=== PATIENT | female | born 1960 | race Caucasian/White ===

== ENCOUNTER 2017-09-03 12:47 | Day surgery (SDC) | payer OTHER ==
[2017-09-03] MEDS ORDERED: Nivolumab 200 MG, Nivolumab 40 MG, Admixture Fee 1 EACH in Sodium Chloride 0.9% 250 ML ... IVPB SCH (13:00)
[2017-09-03 13:21] VITALS: BP 155/81; TEMP 98.2
[2017-09-03] MEDS ORDERED: FLU VACC QS2017-18 36 mo. & older 0.5 ML SYRINGE IM ONE (14:00)
== END 2017-09-03 15:21 | disposition home or self-care (01) ==
LOC: ONC/OP 12:47
PROVIDERS: ATTEND Internal Medicine Medical Oncology
DX: Z51.11 Encounter for antineoplastic chemotherapy (principal); C34.31 Malignant neoplasm of lower lobe, right bronchus or lung; J44.9 Chronic obstructive pulmonary disease, unspecified; I48.91 Unspecified atrial fibrillation; F32.9 Major depressive disorder, single episode, unspecified; F41.9 Anxiety disorder, unspecified; Z88.0 Allergy status to penicillin; Z79.899 Other long term (current) drug therapy; Z87.891 Personal history of nicotine dependence; Z80.1 Family history of malignant neoplasm of trachea, bronchus and lung; Z80.0 Family history of malignant neoplasm of digestive organs
CPT/HCPCS: 36415; 84436; 84443; 96413; J7050; J9299

== ENCOUNTER 2017-09-17 11:10 | Day surgery (SDC) | payer OTHER ==
[2017-09-17] MEDS ORDERED: Nivolumab 200 MG, Nivolumab 40 MG, Admixture Fee 1 EACH in Sodium Chloride 0.9% 250 ML ... IVPB SCH (11:30)
[2017-09-17] MEDS ORDERED: Sodium Chloride 0.9% 20 ML ONE (12:13)
== END 2017-09-17 13:20 | disposition home or self-care (01) ==
LOC: ONC/OP 11:10
PROVIDERS: ATTEND Internal Medicine Medical Oncology
DX: Z51.11 Encounter for antineoplastic chemotherapy (principal); C34.11 Malignant neoplasm of upper lobe, right bronchus or lung; I48.91 Unspecified atrial fibrillation; J44.9 Chronic obstructive pulmonary disease, unspecified; Z88.0 Allergy status to penicillin; Z98.42 Cataract extraction status, left eye; Z98.41 Cataract extraction status, right eye; Z98.890 Other specified postprocedural states; Z87.891 Personal history of nicotine dependence
CPT/HCPCS: 36415; 84436; 84443; 96413; A4216; J7050; J9299

== ENCOUNTER 2017-10-01 11:16 | Day surgery (SDC) | payer OTHER ==
[2017-10-01] MEDS ORDERED: Sodium Chloride 0.9% 20 ML ONE (12:25)
[2017-10-01] MEDS ORDERED: Nivolumab 200 MG, Nivolumab 40 MG, Admixture Fee 1 EACH in Sodium Chloride 0.9% 250 ML ... IVPB SCH (13:00)
== END 2017-10-01 14:36 | disposition home or self-care (01) ==
LOC: ONC/OP 11:16
PROVIDERS: ATTEND Internal Medicine Medical Oncology
DX: Z51.11 Encounter for antineoplastic chemotherapy (principal); C34.11 Malignant neoplasm of upper lobe, right bronchus or lung; J44.9 Chronic obstructive pulmonary disease, unspecified; I48.91 Unspecified atrial fibrillation; F32.9 Major depressive disorder, single episode, unspecified; F41.9 Anxiety disorder, unspecified; Z79.01 Long term (current) use of anticoagulants; Z79.82 Long term (current) use of aspirin; Z79.52 Long term (current) use of systemic steroids; Z79.899 Other long term (current) drug therapy; Z88.0 Allergy status to penicillin; Z98.890 Other specified postprocedural states; Z80.1 Family history of malignant neoplasm of trachea, bronchus and lung; Z80.0 Family history of malignant neoplasm of digestive organs; Z87.891 Personal history of nicotine dependence; Z92.3 Personal history of irradiation
CPT/HCPCS: 36415; 84436; 84443; 96413; A4216; J7050; J9299

== ENCOUNTER 2017-10-15 11:32 | Day surgery (SDC) | payer OTHER ==
[2017-10-15] MEDS ORDERED: Nivolumab 200 MG, Nivolumab 40 MG, Admixture Fee 1 EACH in Sodium Chloride 0.9% 250 ML ... IVPB SCH (11:45)
[2017-10-15] MEDS ORDERED: Sodium Chloride 0.9% 20 ML ONE (11:47)
[2017-10-15 12:38] VITALS: BP 134/81; TEMP 98.3
== END 2017-10-15 13:46 | disposition home or self-care (01) ==
LOC: ONC/OP 11:32
PROVIDERS: ATTEND Internal Medicine Medical Oncology
DX: Z51.11 Encounter for antineoplastic chemotherapy (principal); C34.11 Malignant neoplasm of upper lobe, right bronchus or lung; I48.91 Unspecified atrial fibrillation; J44.9 Chronic obstructive pulmonary disease, unspecified; F32.9 Major depressive disorder, single episode, unspecified; F41.9 Anxiety disorder, unspecified; Z88.0 Allergy status to penicillin; Z79.899 Other long term (current) drug therapy; Z87.891 Personal history of nicotine dependence; Z80.1 Family history of malignant neoplasm of trachea, bronchus and lung; Z80.0 Family history of malignant neoplasm of digestive organs
CPT/HCPCS: 36415; 84436; 84443; 96413; A4216; J7050; J9299

== ENCOUNTER 2017-10-29 11:19 | Day surgery (SDC) | payer OTHER ==
[2017-10-29] MEDS ORDERED: Sodium Chloride 0.9% 20 ML ONE (11:47)
[2017-10-29] MEDS ORDERED: Nivolumab 200 MG, Nivolumab 40 MG, Admixture Fee 1 EACH in Sodium Chloride 0.9% 250 ML ... IVPB SCH (12:30)
[2017-10-29 14:16] VITALS: BP 145/77; TEMP 98.3
== END 2017-10-29 14:18 | disposition home or self-care (01) ==
LOC: ONC/OP 11:19
PROVIDERS: ATTEND Internal Medicine Medical Oncology
DX: Z51.11 Encounter for antineoplastic chemotherapy (principal); C34.11 Malignant neoplasm of upper lobe, right bronchus or lung; J44.9 Chronic obstructive pulmonary disease, unspecified; I48.91 Unspecified atrial fibrillation; F41.9 Anxiety disorder, unspecified; F32.9 Major depressive disorder, single episode, unspecified; Z79.899 Other long term (current) drug therapy; Z79.82 Long term (current) use of aspirin; Z79.01 Long term (current) use of anticoagulants; Z79.2 Long term (current) use of antibiotics; Z88.0 Allergy status to penicillin; Z98.890 Other specified postprocedural states; Z87.891 Personal history of nicotine dependence; Z80.1 Family history of malignant neoplasm of trachea, bronchus and lung; Z80.0 Family history of malignant neoplasm of digestive organs
CPT/HCPCS: 36415; 84436; 84443; 96413; A4216; J7050; J9299

== ENCOUNTER 2017-11-12 14:25 | Day surgery (SDC) | payer OTHER ==
[2017-11-12] MEDS ORDERED: Sodium Chloride 0.9% 20 ML ONE (14:42)
[2017-11-12] MEDS ORDERED: Nivolumab 200 MG, Nivolumab 40 MG, Admixture Fee 1 EACH in Sodium Chloride 0.9% 250 ML ... IVPB SCH (14:45)
--- NOTE | 2017-11-12 16:00 | RAD ---
PA AND LATERAL CHEST: History: Lung cancer. Comparison: 09-02-17. Comparison also made to films dating back to 05-28-17. FINDINGS: The right lung mass is again seen. It has significantly decreased in size when compared to 05-28-17, m easuring approximately 5.0 x 2.0 cm today. Previous measurements on the PA film were recorded at 6.7 x 2.9 cm. This also shows mild decrease in size when compared to 09-02-17 at which time it measured 5. 4 x 2.1 cm. The left lung remains clear. No other interval change. Mild hyperexpansion again noted. Heart and med iastinum are unremarkable. IMPRESSION: Right lung mass has decreased in size as described. POS: [facility]
== END 2017-11-12 16:38 | disposition home or self-care (01) ==
LOC: ONC/OP 14:25
PROVIDERS: ATTEND Internal Medicine Medical Oncology
DX: Z51.11 Encounter for antineoplastic chemotherapy (principal); C34.11 Malignant neoplasm of upper lobe, right bronchus or lung; I48.91 Unspecified atrial fibrillation; J44.9 Chronic obstructive pulmonary disease, unspecified; F41.9 Anxiety disorder, unspecified; F32.9 Major depressive disorder, single episode, unspecified; Z79.01 Long term (current) use of anticoagulants; Z79.82 Long term (current) use of aspirin; Z79.899 Other long term (current) drug therapy; Z88.0 Allergy status to penicillin; Z87.891 Personal history of nicotine dependence; Z80.0 Family history of malignant neoplasm of digestive organs; Z80.1 Family history of malignant neoplasm of trachea, bronchus and lung; Z98.51 Tubal ligation status; Z98.890 Other specified postprocedural states
CPT/HCPCS: 71020; 84436; 84443; 96413; A4216; J7050; J9299

== ENCOUNTER 2017-11-26 11:07 | Day surgery (SDC) | payer OTHER ==
[2017-11-26 11:59] VITALS: BP 120/71; TEMP 99.2
[2017-11-26] MEDS ORDERED: Sodium Chloride 0.9% 20 ML ONE (12:03)
[2017-11-26] MEDS ORDERED: Nivolumab 200 MG, Nivolumab 40 MG, Admixture Fee 1 EACH in Sodium Chloride 0.9% 250 ML ... IVPB SCH (13:00)
== END 2017-11-26 14:18 | disposition home or self-care (01) ==
LOC: ONC/OP 11:07
PROVIDERS: ATTEND Internal Medicine Medical Oncology
DX: Z51.11 Encounter for antineoplastic chemotherapy (principal); C34.11 Malignant neoplasm of upper lobe, right bronchus or lung; J44.9 Chronic obstructive pulmonary disease, unspecified; I48.91 Unspecified atrial fibrillation; F32.9 Major depressive disorder, single episode, unspecified; F41.9 Anxiety disorder, unspecified; Z88.0 Allergy status to penicillin; Z79.899 Other long term (current) drug therapy; Z98.890 Other specified postprocedural states; Z87.891 Personal history of nicotine dependence; Z80.1 Family history of malignant neoplasm of trachea, bronchus and lung; Z80.0 Family history of malignant neoplasm of digestive organs
CPT/HCPCS: 96413; A4216; J7050; J9299

== ENCOUNTER 2017-12-09 10:29 | Day surgery (SDC) | payer OTHER ==
[2017-12-09] MEDS ORDERED: Sodium Chloride 0.9% 20 ML ONE (10:54)
[2017-12-09 11:11] VITALS: BP 144/71
[2017-12-09] MEDS ORDERED: Nivolumab 200 MG, Nivolumab 40 MG, Admixture Fee 1 EACH in Sodium Chloride 0.9% 250 ML ... IVPB SCH (11:30)
== END 2017-12-09 13:06 | disposition home or self-care (01) ==
LOC: ONC/OP 10:29
PROVIDERS: ATTEND Internal Medicine Medical Oncology
DX: Z51.11 Encounter for antineoplastic chemotherapy (principal); C34.11 Malignant neoplasm of upper lobe, right bronchus or lung; J44.9 Chronic obstructive pulmonary disease, unspecified; I48.91 Unspecified atrial fibrillation; F32.9 Major depressive disorder, single episode, unspecified; F41.9 Anxiety disorder, unspecified; Z88.0 Allergy status to penicillin; Z79.01 Long term (current) use of anticoagulants; Z79.899 Other long term (current) drug therapy; Z98.890 Other specified postprocedural states; Z87.891 Personal history of nicotine dependence; Z80.1 Family history of malignant neoplasm of trachea, bronchus and lung; Z80.0 Family history of malignant neoplasm of digestive organs
CPT/HCPCS: 84436; 84443; 96413; A4216; J7050; J9299

== ENCOUNTER 2017-12-24 09:04 | Day surgery (SDC) | payer OTHER ==
[2017-12-24] MEDS ORDERED: Nivolumab 200 MG, Nivolumab 40 MG, Admixture Fee 1 EACH in Sodium Chloride 0.9% 250 ML ... IVPB SCH (09:30)
== END 2017-12-24 12:05 | disposition home or self-care (01) ==
LOC: ONC/OP 09:04
PROVIDERS: ATTEND Internal Medicine Medical Oncology
DX: Z51.11 Encounter for antineoplastic chemotherapy (principal); C34.11 Malignant neoplasm of upper lobe, right bronchus or lung; J44.9 Chronic obstructive pulmonary disease, unspecified; F41.9 Anxiety disorder, unspecified; F32.9 Major depressive disorder, single episode, unspecified; I48.91 Unspecified atrial fibrillation; Z79.2 Long term (current) use of antibiotics; Z79.01 Long term (current) use of anticoagulants; Z79.82 Long term (current) use of aspirin; Z79.52 Long term (current) use of systemic steroids; Z79.899 Other long term (current) drug therapy; Z88.0 Allergy status to penicillin; Z98.890 Other specified postprocedural states; Z87.891 Personal history of nicotine dependence; Z80.1 Family history of malignant neoplasm of trachea, bronchus and lung; Z80.0 Family history of malignant neoplasm of digestive organs
CPT/HCPCS: 96413; J7050; J9299

== ENCOUNTER 2018-01-07 14:37 | Day surgery (SDC) | payer OTHER ==
[2018-01-07] MEDS ORDERED: Nivolumab 200 MG, Nivolumab 40 MG, Admixture Fee 1 EACH in Sodium Chloride 0.9% 250 ML ... IVPB SCH (15:30)
== END 2018-01-07 16:51 | disposition home or self-care (01) ==
LOC: ONC/OP 14:37
PROVIDERS: ATTEND Internal Medicine Medical Oncology
DX: Z51.11 Encounter for antineoplastic chemotherapy (principal); C34.11 Malignant neoplasm of upper lobe, right bronchus or lung; I48.91 Unspecified atrial fibrillation; J44.9 Chronic obstructive pulmonary disease, unspecified; F41.9 Anxiety disorder, unspecified; F32.9 Major depressive disorder, single episode, unspecified; Z79.2 Long term (current) use of antibiotics; Z79.01 Long term (current) use of anticoagulants; Z79.82 Long term (current) use of aspirin; Z79.52 Long term (current) use of systemic steroids; Z79.899 Other long term (current) drug therapy; Z88.0 Allergy status to penicillin; Z98.890 Other specified postprocedural states; Z87.891 Personal history of nicotine dependence; Z80.1 Family history of malignant neoplasm of trachea, bronchus and lung; Z80.0 Family history of malignant neoplasm of digestive organs
CPT/HCPCS: 96413; J7050; J9299

== ENCOUNTER 2018-01-21 12:04 | Day surgery (SDC) | payer OTHER ==
[2018-01-21] MEDS ORDERED: Nivolumab 240 MG in Sodium Chloride 0.9% 250 ML 250 ML IVPB SCH (12:30)
[2018-01-21] MEDS ORDERED: Sodium Chloride 0.9% 30 ML ONE (12:55)
[2018-01-21 13:22] VITALS: BP 179/90; TEMP 98.4
--- NOTE | 2018-01-21 14:37 | RAD ---
RADIOGRAPH CHEST 2 VIEWS: Date: 01-21-18 Time: 12:14 p.m. HISTORY: 57-year-old female with I62.3/C34.11 - malignant neoplasm of upper lobe, right bronchus or lung. COMPARISON: 11-12-17 FINDINGS: There is severe bilateral hyperinflation of the lungs, representing COPD. Cardiomediastinal silhouett e is narrowed by this pulmonary hyperinflation. The previously demonstrated approximately 5 x 2 cm ri ght parahilar upper lobe lesion remains, but it appears less dense on the current radiograph. The tra nsverse diameter has not significantly changed. The craniocaudal dimension appears larger because it is now confluent with right suprahilar density, resulting in overall craniocaudal dimension of approx imately 4 cm. The rest of the lungs are clear. No pleural effusion or pneumothorax. IMPRESSION: 1. Right parahilar upper lobe pulmonary lesion appears less dense than before, but its craniocaudal d imension has questionably increased. 2. Consider further evaluation with chest CT. 3. Severe hyperinflation representing emphysema. GWEN POS: [facility]
== END 2018-01-21 17:22 | disposition home or self-care (01) ==
LOC: ONC/OP 12:04
PROVIDERS: ATTEND Internal Medicine Medical Oncology
DX: Z51.11 Encounter for antineoplastic chemotherapy (principal); C34.11 Malignant neoplasm of upper lobe, right bronchus or lung; J44.9 Chronic obstructive pulmonary disease, unspecified; I48.91 Unspecified atrial fibrillation; F41.9 Anxiety disorder, unspecified; F32.9 Major depressive disorder, single episode, unspecified; Z79.01 Long term (current) use of anticoagulants; Z79.82 Long term (current) use of aspirin; Z79.2 Long term (current) use of antibiotics; Z79.52 Long term (current) use of systemic steroids; Z79.899 Other long term (current) drug therapy; Z88.0 Allergy status to penicillin; Z98.890 Other specified postprocedural states; Z87.891 Personal history of nicotine dependence; Z80.1 Family history of malignant neoplasm of trachea, bronchus and lung; Z80.0 Family history of malignant neoplasm of digestive organs
CPT/HCPCS: 71046; 84436; 84443; 96413; A4216; J7050; J9299

== ENCOUNTER 2018-02-04 14:03 | Day surgery (SDC) | payer OTHER ==
[2018-02-04] MEDS ORDERED: Nivolumab 240 MG in Sodium Chloride 0.9% 250 ML 250 ML IVPB SCH (15:15)
[2018-02-04 15:39] VITALS: BP 135/80
== END 2018-02-04 17:16 | disposition home or self-care (01) ==
LOC: ONC/OP 14:03
PROVIDERS: ATTEND Internal Medicine Medical Oncology
DX: Z51.11 Encounter for antineoplastic chemotherapy (principal); C34.11 Malignant neoplasm of upper lobe, right bronchus or lung; J44.9 Chronic obstructive pulmonary disease, unspecified; I48.91 Unspecified atrial fibrillation; F41.8 Other specified anxiety disorders; Z87.891 Personal history of nicotine dependence; Z88.0 Allergy status to penicillin; Z79.899 Other long term (current) drug therapy
CPT/HCPCS: 96413; J7050; J9299

== ENCOUNTER 2018-02-18 14:22 | Day surgery (SDC) | payer OTHER ==
[2018-02-18] MEDS ORDERED: Nivolumab 240 MG in Sodium Chloride 0.9% 250 ML 250 ML IVPB SCH (14:30)
--- NOTE | 2018-02-18 15:48 | RAD ---
TWO VIEWS OF THE CHEST: 02/18/18 COMPARISON: 01/21/18 HISTORY: Malignant neoplasm of right upper lobe. FINDINGS: Diffuse increased liner interstitial density with pulmonary hyperinflation suggesting COPD in the pro per clinical setting. There is a mass-like opacity within the right perihilar region/inferior aspect of the right upper lobe with superior retraction of the right hilum and superior retraction of the mi nor fissure. This area of focal opacity, consistent with the provided history of malignancy, measures approximately 3.5 cm in craniocaudal dimension, similar when compared to the 01/21/18 exam. When comp ared to 11/12/17, this mass was smaller, measuring 1.9 cm in craniocaudal dimension. IMPRESSION: Mass density in the right perihilar region, increased in size since 11/12/17. Given history of lung c ancer, this is suspicious for progression of disease. This could be better assessed via CT examinatio n of the chest. Code T POS: [facility]
== END 2018-02-18 16:42 | disposition home or self-care (01) ==
LOC: ONC/OP 14:22
PROVIDERS: ATTEND Internal Medicine Medical Oncology
DX: Z51.11 Encounter for antineoplastic chemotherapy (principal); C34.11 Malignant neoplasm of upper lobe, right bronchus or lung; J44.9 Chronic obstructive pulmonary disease, unspecified; I48.91 Unspecified atrial fibrillation; F41.9 Anxiety disorder, unspecified; F32.9 Major depressive disorder, single episode, unspecified; Z88.0 Allergy status to penicillin; Z87.891 Personal history of nicotine dependence; Z79.01 Long term (current) use of anticoagulants; Z79.899 Other long term (current) drug therapy; Z98.890 Other specified postprocedural states
CPT/HCPCS: 71046; 96413; C9299; J7050

== ENCOUNTER 2018-03-11 10:41 | Outpatient (CLI) | payer OTHER ==
[~2018-03-11 10:41] MED LIST: Iopamidol 370 76% 100 ML VIAL ONE
== END 2018-03-11 10:42 | disposition home or self-care (01) ==
LOC: BICCT 10:41
PROVIDERS: ATTEND Internal Medicine Medical Oncology
DX: C34.11 Malignant neoplasm of upper lobe, right bronchus or lung (principal); R91.8 Other nonspecific abnormal finding of lung field
CPT/HCPCS: 71260; 74160

== ENCOUNTER 2018-03-19 15:12 | Inpatient (IN) | payer OTHER ==
[2018-03-19 15:37] LABS: Hemoglobin 12.9 g/dL (12.0-16.0); Mean Corpuscular HGB CONC 30.9 g/dL (32.0-36.0); Mean Corpuscular Hemoglobin 30.3 pg (27.0-31.0); Mean Corpuscular Volume 98.2 fl (81.0-99.0); Mean Platelet Volume 6.5 fL (7.4-10.4); Platelet Count 672 thou/uL (130-400); Red Blood Cell (RBC) Count 4.27 mill/uL (4.20-5.40); White Blood Cell (WBC) Count 29.3 thou/uL (4.8-10.8)
[2018-03-19 15:51] LABS: Band 7 % (5-11); Lymphocytes 2 % (21-51); MDiff Complete? YES; Monocytes 5 % (0-10); Neutrophil 86 % (42-75); PLT Morphology Comment Appears Increased; RBC Morphology Normal
[2018-03-19] MEDS ORDERED: fentaNYL Citrate/PF 2,000 MCG in Sodium Chloride 0.9% 60 ML IV SCH ×2 (15:56→20:00)
[2018-03-19] MEDS ORDERED: DISCONTINUE PREVIOUS NARCOTIC PAIN MEDICATIONS AND BENZODIAZEPINES FS SCH ×2 (15:56→19:48)
[2018-03-19 15:59] LABS: ALT (SGPT) 11 U/L (8-55); AST (SGOT) 14 U/L (5-34); Albumin 3.7 g/dL (3.5-5.0); Alkaline Phosphatase 96 U/L (40-150); BUN (Urea Nitrogen) 14 mg/dL (9.8-20.1); Bilirubin, Total 0.2 mg/dL (0.2-1.2); Calc. Creatinine Clearance 0 mL/min (70-130); Calcium 10.7 mg/dL (7.8-10.44); Estimated GFR-MDRD Greater than 90; Glucose 140 mg/dL (70-105); Protein, Total 7.7 g/dL (6.0-8.3)
[2018-03-19 16:09] LABS: Anion Gap 13 mmol/L (10-20); Carbon Dioxide 38 mmol/L (22-29); Chloride 95 mmol/L (98-107); Potassium 4.9 mmol/L (3.5-5.1); Sodium 141 mmol/L (136-145)
[2018-03-19] MEDS ORDERED: Magnesium Sulfate 2 GM/100 ML BAG ONE (16:34)
[2018-03-19 16:40] LABS: pH, Arterial 7.19 (7.35-7.45)
[2018-03-19 16:41] LABS: Actual Bicarbonate (HCO3a) 36.9 mEq/L (22-26); Analyzer IN Cardio ER; Base Excess (BEa) 5.8 mEq/L (0 (+/-) 2.5); CO2 Tension 99.8 mmHg (35.0-45.0); Calcium, Ionized 1.2 mmol/L (1.12-1.30); Hemoglobin (Hb) 11.4 g/dL (12.0-16.0); O2 Tension (PaO2) 90.4 mmHg (80.0-100.0); Puncture Site LRA
[2018-03-19] MEDS ORDERED: Ondansetron HCl/PF 4 MG/2 ML Vial IVP PRN (16:50)
[2018-03-19] MEDS ORDERED: Lacri-Lube Opth Oint 3.5 GM TUBE EA EYE PRN (16:50)
[2018-03-19] MEDS ORDERED: Acetaminophen 650 MG Suppository PR PRN (16:50)
[2018-03-19 17:15] LABS: Troponin I Less than 0.010 ng/mL (< 0.028)
--- NOTE | 2018-03-19 17:56 | HP ---
PRIMARY CARE PHYSICIAN: Keli De Paz M.D. PRIMARY SAMPLE CUTTER: Ronald Moraes M.D. CHIEF COMPLAINT: Shortness of breath. HISTORY OF PRESENT ILLNESS: Ms. Mcdaniel is a 57-year-old lady who was seen at [facility] on 03/19/2018. She is currently intubated and unable to provide any history. History was obtained from discussion with the patient's daughter by the bedside, discussion with the emergen cy room physician and review of medical records. She has a history of chronic obstructive pulmonary disease and lung cancer. Her sound assistant is Dr. Leonard. The patient's daughter reports that she stopped receiving chemotherapy treatments a coupl e of weeks ago because the chemotherapy was not working and the patient was not given much longer to live. She reports that she was well until yesterday. Today morning, she complained of shortness of breath. The patient's daughter does not recall hearing any cough. EMS was called. On the way to the emerg ency room, the patient reportedly requested intubation. She was initially treated with a nonrebreath er mask and was intubated in the emergency room. REVIEW OF SYSTEMS: Could not be obtained secondary to the patient's intubated status. PAST MEDICAL HISTORY: Chronic obstructive pulmonary disease; lung cancer; moderate protein-calorie m alnutrition; atrial flutter, patient was on rivaroxaban in the past, but it is unclear whether she is still taking rivaroxaban; severe mitral regurgitation and nonsustained ventricular tachycardia in past. PAST SURGICAL HISTORY: Tubal ligation. PSYCHIATRIC HISTORY: Anxiety and depression. ALLERGIES: PENICILLIN. SOCIAL HISTORY: The patient smokes 1-2 cigarettes a day. She does not use alcohol or recreational d rugs. FAMILY HISTORY: No family history of premature coronary artery disease. CURRENT MEDICATIONS: These need to be clarified, but in the past, the patient was on Tudorza 400 mcg inhalation 2 times a day, Xanax 0.5 mg 2 times a day, aspirin 81 mg daily, Lopressor 12.5 mg 2 times a day, montelukast 10 mg daily, multivitamins and rivaroxaban 20 mg at bedtime. PHYSICAL EXAMINATION: GENERAL: Ms. Mcdaniel is intubated and mechanically ventilated. VITAL SIGNS: Blood pressure is 146/80, pulse is 95. She is breathing at a rate of 10 and saturating 100% on ventilator. She is afebrile. EYES: No scleral icterus. No conjunctival pallor. Pupils are approximately 4 mm bilaterally, slugg ishly reactive to light. ENT: Endotracheal tube present. NECK: No cervical lymphadenopathy, no thyromegaly. Trachea is midline. RESPIRATORY: Accessory muscles of breathing are not active. Chest wall movements are symmetric bila terally. LUNGS: Reveals diminished breath sounds in all lung zones. CARDIOVASCULAR: S1 and S2 are heard, regular. Peripheral pulses palpable. No carotid bruit, no per icardial rub. BODY HABITUS: The patient appears to be malnourished. ABDOMEN: Soft, nontender, bowel sounds are heard. No hepatomegaly, no splenomegaly. NEUROLOGIC: Limited neurological exam secondary to patient's intubated status. Pupils as described above. No facial droop. Deep tendon reflexes are 2+. Plantar reflexes equivocal bilaterally. MUSCULOSKELETAL: The patient is currently on fentanyl drip. No spontaneous limb movements. SKIN: The patient has tattoos. No rashes or subcutaneous nodules. LYMPHATIC: No cervical lymphadenopathy. PSYCHIATRIC: Unable to assess mood, affect or orientation to person, place or time. LABORATORY AND IMAGING DATA: Ms. Mcdaniel's labs and investigations were reviewed. I reviewed her electrocardiogram, which shows normal sinus rhythm, no ST changes to suggest an acute coronary syndr ome. I also reviewed her chest x-ray, which does not show any obvious pulmonary infiltrates. She renteria s a right upper lobe lung mass. She has leukocytosis with 29,300 white cells, of which 86% are neutr ophils, normal hemoglobin, elevated platelet count of 672,000. Normal sodium, normal potassium, crea tinine of 0.53, mildly elevated calcium of 10.7, unremarkable liver profile and arterial blood gases showing pH of 7.19, pCO2 of 99.8 and pO2 of 90, done while she was being mechanically ventilated. ASSESSMENT AND PLAN: Ms. Mcdaniel is a 57-year-old lady who was seen at [facility] on 03/19/2018. Her problem list includes: 1. Acute respiratory failure, hypercapnic. Ms. Mcdaniel is currently intubated and mechanically v entilated. She has also been started on oxygen, steroids and bronchodilators by [facility]. She will be admitted to the CCU for further management. Most likely etiology of acute respiratory failure is chronic obstructive pulmonary disease exacerbation. 2. Chronic obstructive pulmonary disease exacerbation: Continue oxygen, steroids, bronchodilators a nd antibiotics. 3. Lung cancer. No treatment options, according to patient's daughter. 4. Moderate to severe protein-calorie malnutrition: Consult dietitian for opinion and help with man agement. 5. History of atrial flutter: The patient is currently in sinus rhythm. Once her home medications are confirmed, we will decide regarding whether she should be on rivaroxaban. Many thanks for allowing me to participate in your patient's care. Please feel free to contact me wi th any questions or concerns. LEVEL OF RISK: High. LEVEL OF COMPLEXITY: High.
--- NOTE | 2018-03-19 18:10 | RAD ---
PORTABLE AP CHEST X-RAY 03/19/18 HISTORY: Post intubation and nasogastric tube placement. Shortness of breath. History of COPD and lung cancer. COMPARISON: 02/18/18. FINDINGS: Endotracheal tube is now noted in place with the tip overlying the T3-4 level and above the level of the daryl. The lungs are hyperexpanded. The right upper lobe mass is again seen but is larger in siz e compared to the prior exam. Mass in craniocaudal dimension on the prior study measured 3.5 cm with transverse dimension of approximately 5.4 cm. On today's exam, the craniocaudal dimension is 5.5 cm with transverse dimension of 6.6 cm. No definite additional pulmonary nodule or mass is seen. Vascula r calcification is seen in the thoracic aorta. The cardiac silhouette and pulmonary vasculature are w ithin normal limits. No other interval change. IMPRESSION: 1. Interval placement of an endotracheal tube with tip above the level of the daryl. 2. Enlargement of right upper lobe/right perihilar mass. 3. Stable hyperexpansion of the lungs. 4. Indication for this exam was also nasogastric tube placement, but a nasogastric tube is not v isualized on this exam. POS: [facility]
[2018-03-19] MEDS ORDERED: Morphine 4 MG/ML VIAL SLOW IVP PRN (19:48)
[2018-03-19] MEDS ORDERED: Fentanyl CADD 250 ML IVPB SCH (19:48)
[2018-03-19] MEDS ORDERED: Propofol BOLUS 1,000 MG/100 ML VIAL IV PRN (19:48)
[2018-03-19] MEDS ORDERED: Fentanyl BOLUS 250 ML IVPB PRN (19:48)
[2018-03-19] MEDS: Cefepime 1 GM, Admixture Fee 1 EACH in Sodium Chloride 0.9% 10 ML SLOW IVP SCH (19:53)
[2018-03-19 20:18] LABS: Troponin I Less than 0.010 ng/mL (< 0.028)
[2018-03-19] MEDS ORDERED: Famotidine/PF 20 mg/2ml Vial SLOW IVP SCH (21:00)
[2018-03-19] MEDS ORDERED: Cefepime 1 GM in Sodium Chloride 0.9% 100 ML IVPB SCH (21:00)
[2018-03-19] MEDS ORDERED: Famotidine 40 MG/4 ML VIAL SLOW IVP SCH (21:00)
[2018-03-19] MEDS: Pantoprazole 40 MG VIAL IVP SCH (21:34)
[2018-03-19] MEDS: Lorazepam 2 MG/ML VIAL SLOW IVP PRN (23:04)
--- NOTE | 2018-03-19 23:22 | CON ---
DATE OF CONSULTATION: 03/19/2018 HISTORY OF PRESENT ILLNESS: A 57-year-old female with end-stage COPD, lung cancer, followed by Dr. Jet dimas, Dr. Leonard. Apparently, came to the ER and shortly thereafter proceeded to respiratory arr est. Apparently, the daughter was at the bedside according to the ER physician who intubated. My un derstanding was that somewhere down the line, she has considered hospice care. The daughter is not here at the present time to give additional information. In the ER, we are in th e process of trying to locate the daughter. PAST MEDICAL HISTORY: The other previous medical history is extensively well outlined; it includes h istory of COPD, end-stage with multiple intubations in the past; depression; anxiety and squamous esvin l carcinoma, right lung. PAST SURGICAL HISTORY: Tubal ligation and right hand surgery. MEDICATIONS: At one time, she was on Symbicort, albuterol, DuoNeb, Xanax. HOME MEDICINES: Include prednisone 20, Xarelto 20, Singulair 10, Lopressor 12.5 b.i.d. and aspirin i nhaler ____. ALLERGIES: PENICILLIN. SOCIAL HISTORY: Former smoker, quit smoking in 2012. In 2017, she was admitted to the hospital with respiratory failure. She had a previous trach in the past. Social history is otherwise unobtainabl e. FAMILY HISTORY: Otherwise unobtainable. REVIEW OF SYSTEMS: Otherwise unobtainable. PHYSICAL EXAMINATION: GENERAL: A cachectic female, intubated. VITAL SIGNS: Sats are 100%, pulse 80, and blood pressure ____. CHEST: Decreased breath sounds. No wheezing. CARDIAC: Normal S1 and S2. No gallops. ABDOMEN: Soft. No masses. NEUROLOGIC: Pupils are pinpoint. LABORATORY DATA: White count is 29,000, hemoglobin and hematocrit 12 and 41, platelet count is 672 a nd 86 segs. Glucose 140. IMAGING DATA: X-ray shows the above-mentioned right lung mass with marked hyperinflation. Oxygenati on is adequate. IMPRESSION: 1. Respiratory failure, chronic obstructive pulmonary disease. 2. Squamous cell carcinoma, right lung. 3. Hypertension. PLAN: As soon as the daughter is arrived, we will try to make additional input at long-term care. In the meantime, we will proceed with neb treatments, steroids and broad-spectrum antibiotics. We will follow. This is a forty-five minutes critical care time.
[2018-03-20] MEDS: Lorazepam 2 MG/ML VIAL SLOW IVP PRN ×3 (00:58→19:55)
[2018-03-20 05:34] LABS: #Lymphocytes 0.3 thou/uL (1.20-3.40); #Monocytes 0.4 thou/uL (0.11-0.59); #Neutrophils 10.8 thou/uL (1.40-6.50); %Eosinophils 0.1 % (0.0-10.0); %Lymphocytes 2.5 % (21.0-51.0); %Neutrophils 94.4 % (42.0-75.0); Mean Corpuscular HGB CONC 31.2 g/dL (32.0-36.0); Mean Corpuscular Volume 96.3 fl (81.0-99.0); Mean Platelet Volume 6.3 fL (7.4-10.4); Platelet Count 356 thou/uL (130-400); RBC Distribution Width 11.8 % (11.5-14.5); Red Blood Cell (RBC) Count 3.01 mill/uL (4.20-5.40); White Blood Cell (WBC) Count 11.4 thou/uL (4.8-10.8)
[2018-03-20 05:42] LABS: Anion Gap 12 mmol/L (10-20); BUN (Urea Nitrogen) 20 mg/dL (9.8-20.1); Calc. Creatinine Clearance 84 mL/min (70-130); Calcium 9.1 mg/dL (7.8-10.44); Carbon Dioxide 30 mmol/L (22-29); Chloride 105 mmol/L (98-107); Estimated GFR-MDRD Greater than 90; Glucose 128 mg/dL (70-105); Potassium 3.8 mmol/L (3.5-5.1); Sodium 143 mmol/L (136-145)
[2018-03-20] MEDS: Cefepime 1 GM, Admixture Fee 1 EACH in Sodium Chloride 0.9% 10 ML SLOW IVP SCH ×2 (06:11→17:26)
[2018-03-20 07:19] LABS: pH, Arterial 7.43 (7.35-7.45)
[2018-03-20 07:20] LABS: Actual Bicarbonate (HCO3a) 32.4 mEq/L (22-26); Base Excess (BEa) 7.3 mEq/L (0 (+/-) 2.5); CO2 Tension 49.7 mmHg (35.0-45.0); Hematocrit-ABG 25.2 % (36.0-47.0); O2 Tension (PaO2) 110.5 mmHg (80.0-100.0)
[2018-03-20 07:21] LABS: ALV-art Gradient 76.925 (0-20); Calcium, Ionized 1.2 mmol/L (1.12-1.30); Puncture Site LRA
--- NOTE | 2018-03-20 08:37 | PRG ---
DATE OF SERVICE: 03/20/2018 The events of yesterday were noted. This is a note that encompasses 45 minutes critical care time sp ent with the patient this morning. I have known Ms. Mcdaniel for the past 10 years. She has severe COPD. She had a tracheostomy back in 2012 for refractory respiratory failure and barely survived that hospitalization. She eventually got through that and was decannulated. However, in the last couple of years her health has begun to decline again. In 12/2015 the patient underwent bronchoscopy for right upper lobe lung mass and was diagnosed with squamous cell carcinoma. She has since undergone radiation and chemo. The last note I got from her oncologist indicated that she had advanced to the point where he felt not much more c ould be done and was pushing towards hospice. It is my understanding that she actually enrolled in H ospice this week, but was not DNR yet. She came into the hospital last night with severe shortness o f breath. I am not sure who was making decisions at that time, but she was subsequently intubated an d placed on mechanical ventilation. Her ex- presented last night and spoke with Dr. East. My communication with the patient today indicates that she is actually and does not want him m aking any decisions. She wants her daughter to make decisions for her if she cannot. Her son has brito bstance abuse problems and cannot be trusted to make medical decisions and I believe he is probably s till a minor. Currently, she is intubated on mechanical ventilation, but is awake. PHYSICAL EXAMINATION: VITAL SIGNS: Temperature is 98.6, pulse 103, blood pressure 121/74, O2 saturation 100%, 24-hour inta ke 10, output 550. She has had minimal urine output, but has not been getting any IV fluids. HEENT: Pupils react. Sclerae icteric. Oropharynx clear. NECK: No JVD. LUNGS: Poor air movement. She has a peak airway pressure of about 35, plateau pressure of 11. CARDIOVASCULAR: S1, S2 regular, without murmur. ABDOMEN: Soft, nontender, nondistended. EXTREMITIES: Severe emaciation without clubbing, cyanosis, or edema. LABORATORY DATA: PH 7.43, pCO2 49, pO2 110 on SIMV rate 20, tidal volume 350, PEEP 5, pressure suppo rt 10, FiO2 35%. White blood cell count 11.4, hematocrit 29, platelet count 356. Sodium 143, potass ium 3.8, chloride 105, CO2 30, BUN 20, creatinine 0.5, glucose 128. ASSESSMENT: 1. Acute on chronic respiratory failure. 2. Severe chronic obstructive pulmonary disease. 3. Squamous cell carcinoma which has been refractory to chemo and radiation. RECOMMENDATIONS: 1. I do feel like the patient is able to make decisions for herself at this time. She indicated to me that she would want to try mechanical ventilation for another day or two to see if I can get her o ff. From my conversations with her in the past, I do not feel that she would want this prolonged. S he is in a very difficult family situation having a minor child at home. 2. Continue steroids, nebulization treatments. I have adjusted her IV fluids and the frequency of h er nebulization treatments. 3. Will discuss with her daughter when I can get ahold of her.
[2018-03-20] MEDS: Propofol 1,000 MG/100 ML VIAL IV PRN ×2 (08:40→19:48)
[2018-03-20] MEDS ORDERED: Prevnar 13-Val Conj/PF 0.5 ML SYRINGE IM ONE (09:00)
--- NOTE | 2018-03-20 09:09 | RAD ---
SINGLE VIEW OF THE CHEST: COMPARISON: 03/19/18. HISTORY: Ventilated patient with respiratory failure. FINDINGS: A single view of the chest shows a normal size cardiomediastinal silhouette. There is hyperexpansion of the lungs consistent with COPD. There is persistent opacity in the inferior aspect of the right upper lobe. The endotracheal tube is unchanged in position. An NG tube has been placed in the inter im with its tip in the stomach. The side port of the endotracheal tube is within the distal esophagu s. IMPRESSION: 1. Persistent right upper lobe opacity. 2. Nasogastric tube should be advanced approximately 5 cm completely into the stomach. 3. Chronic obstructive pulmonary disease. CODE T POS: [facility]
[2018-03-20] MEDS: Sodium Chloride 0.45% 1,000 ML IV SCH ×2 (09:23→21:26)
--- NOTE | 2018-03-20 12:49 | PDOC.PN ---
- Subjective Encounter Start Date: 03/20/18 Encounter Start Time: 09:00 Pt seen for followup re: acute on chronic respiratory failure. Awake, alert, intubated, answering questions by nodding or shaking head. - Objective MAR Reviewed: Yes Vital Signs & Weight: Vital Signs (12 hours) Temp Pulse Resp BP Pulse Ox 03/20/18 10:48 102 H 103/59 L 03/20/18 10:47 103 H 21 H 99 03/20/18 10:00 21 H 03/20/18 08:00 98.7 F 106 H 21 H 100 03/20/18 06:41 100 114/70 03/20/18 06:38 100 20 99 03/20/18 06:00 20 03/20/18 04:00 98.6 F 20 03/20/18 02:27 97 91/48 L 03/20/18 02:00 20 Weight Admit Weight 93 lb Weight 93 lb 1.6 oz Most Recent Monitor Data Heart Rate from ECG 105 NIBP 99/58 NIBP BP-Mean 73 Respiration from ECG 20 SpO2 100 I&O: 03/19/18 03/20/18 03/21/18 06:59 06:59 06:59 Intake Total 10 Output Total 550 201 Balance -540 -201 Result Diagrams: 03/20/18 05:20 03/20/18 05:20 EKG Reviewed by me: Yes (Tele: NSR) Phys Exam - Physical Examination malnourished HEENT: PERRLA, moist MMs, sclera anicteric ETT+ Respiratory: no wheezing, no rales, no rhonchi, clear to auscultation bilateral Cardiovascular: RRR, no rub Gastrointestinal: soft, non-tender, no distention, positive bowel sounds Neurological: moves all 4 limbs Psychiatric: normal affect Dx/Plan (1) Acute and chronic respiratory failure with hypercapnia Code(s): J96.22 - ACUTE AND CHRONIC RESPIRATORY FAILURE WITH HYPERCAPNIA Status: Acute Comment: Likely due to COPD exacerbation (2) COPD exacerbation Code(s): J44.1 - CHRONIC OBSTRUCTIVE PULMONARY DISEASE W (ACUTE) EXACERBATION Status: Acute Comment: Intubated and on mechanical ventilation. Continue cefepime, oxygen, steroids and bronchodilators. (3) Protein-calorie malnutrition, severe Code(s): E43 - UNSPECIFIED SEVERE PROTEIN-CALORIE MALNUTRITION Status: Chronic Comment: consult dietitian (4) Lung cancer Code(s): C34.90 - MALIGNANT NEOPLASM OF UNSP PART OF UNSP BRONCHUS OR LUNG Status: Chronic Qualifiers: Laterality: right Lung location: unspecified part of lung Qualified Code( s): C34.91 - Malignant neoplasm of unspecified part of right bronchus or lung Comment: No treatment options, per pt's discussion with her oncologist - Plan * . Review of Systems - Review of Systems Constitutional: negative: fever, chills, weakness, malaise Respiratory: Shortness of Breath, SOB with Excertion. negative: Cough, Pleuritic Pain Cardiovascular: negative: chest pain, palpitations, orthopnea, paroxysmal nocturnal dyspnea, edema Gastrointestinal: negative: Nausea, Vomiting, Abdominal Pain, Diarrhea Neurological: negative: Weakness, Numbness, Confusion, Seizures - Medications/Allergies Allergies/Adverse Reactions: Allergies Allergy/AdvReac Type Severity Reaction Status Date / Time Penicillins Allergy "my mom Verified 05/30/16 09:35 said my tongue swelled up & trouble breathing" Medications: Current Medications Acetaminophen (Tylenol) 650 mg KS Q4H PRN PRN Reason: Headache/Fever or Pain Albuterol/Ipratropium (Duoneb) 3 ml NEB [id number] ALONSO Last Admin: 03/20/18 10:47 Dose: 3 ml Arformoterol Tartrate (Brovana) 15 mcg NEB BID-RT ALONSO Budesonide (Pulmicort Neb Solution) 0.5 mg INH BID-RT ALONSO Fentanyl Citrate 2,000 mcg/ (Sodium Chloride) 100 mls @ 0 mls/hr IV INF ALONSO; Per Protocol PRN Reason: Protocol Stop: 04/18/18 15:56 Cefepime HCl 1 gm/Miscellaneous Medication 1 each/ Sodium Chloride 10 mls @ 120 mls/hr SLOW IVP Q12H ALONSO Last Admin: 03/20/18 06:11 Dose: 10 mls Fentanyl (Fentanyl Cadd) 250 mls @ 0 mls/hr IVPB INF ALONSO; Titrate PRN Reason: Protocol Stop: 04/18/18 19:48 Fentanyl Citrate (Fentanyl Bolus) 250 mls @ 0 mls/hr IVPB PRN PRN; As Directed PRN Reason: Breakthrough pain/agitation Stop: 04/18/18 19:48 Sodium Chloride (1/2 Normal Saline) 1,000 mls @ 75 mls/hr IV .[id number] [facility] Last Admin: 03/20/18 09:23 Dose: 1,000 mls Lorazepam (Ativan) 2 mg SLOW IVP Q1H PRN PRN Reason: Breakthrough agitation Stop: 04/18/18 19:48 Last Admin: 03/20/18 00:58 Dose: 2 mg Methylprednisolone Sodium Succinate (Solu-Medrol) 40 mg IVP Q6HR [facility] Last Admin: 03/20/18 12:37 Dose: 40 mg Mineral Oil/White Petrolatum (Lacri-Lube Ointment) 0 gm EA EYE PRN PRN PRN Reason: Dry Eyes Montelukast Sodium (Singulair) 10 mg PER TUBE QPM [facility] Morphine Sulfate (Morphine) 2 mg SLOW IVP Q1H PRN PRN Reason: breakthrough pain/agitation Stop: 04/18/18 19:48 Ondansetron HCl (Zofran) 4 mg IVP Q6H PRN PRN Reason: Nausea/Vomiting Pantoprazole Sodium (Protonix) 40 mg IVP 2100 [facility] Last Admin: 03/19/18 21:34 Dose: 40 mg Propofol (Diprivan) 1,000 mg IV INF PRN; Protocol PRN Reason: TO ACHIEVE GOAL RASS Stop: 04/18/18 19:48 Last Admin: 03/20/18 08:40 Dose: 1,000 mg Propofol (Diprivan Bolus) 20 mg IV Q5MIN PRN PRN Reason: BREAKTHROUGH AGITATION Stop: 04/18/18 19:48
[2018-03-20 16:46] LABS: Base Excess-Venous 12.3 mmol/L (0 (+/- 2.5)); Bicarbonate (HCO3v) 39.4 mmol/L (1.0-85.0); CO2 Tension (PvCO2) 58.9 mmHg (41.0-51.0); Calcium, Ionized 0.96 mmol/L (1.12-1.32); Hemoglobin - Calc 15.4 g/dL (12.0-18.0); Lactate 1.09 mmol/L (0.50-2.20); O2 Tension (PvO2) 125.5 mmHg (35.0-45.0); Potassium 8.2 mmol/L (3.4-4.7); T. Carbon Dioxide 41.2 mmol/L (1.0-85.0); pH (Venous) 7.434 (7.35-7.45); vO2 Saturation-calc 98.8 % (94-98)
[2018-03-20] MEDS: Budesonide 0.5 MG/2 ML NEB INH SCH (18:19)
[2018-03-20] MEDS: Arformoterol 15 MCG/2 ML NEB NEB SCH (18:19)
[2018-03-20] MEDS: Pantoprazole 40 MG VIAL IVP SCH (20:01)
[2018-03-20] MEDS: Montelukast Sodium 10 mg Tablet PER TUBE SCH (20:01)
[2018-03-21] MEDS: Lorazepam 2 MG/ML VIAL SLOW IVP PRN ×3 (01:54→12:45)
[2018-03-21 04:19] LABS: #Lymphocytes 0.2 thou/uL (1.20-3.40); #Monocytes 0.3 thou/uL (0.11-0.59); #Neutrophils 8.5 thou/uL (1.40-6.50); %Lymphocytes 2.5 % (21.0-51.0); %Monocytes 3.1 % (0.0-10.0); %Neutrophils 94.4 % (42.0-75.0); Hemoglobin 8.7 g/dL (12.0-16.0); Mean Corpuscular HGB CONC 31.3 g/dL (32.0-36.0); Mean Corpuscular Hemoglobin 29.7 pg (27.0-31.0); Mean Platelet Volume 6.4 fL (7.4-10.4); Platelet Count 315 thou/uL (130-400); RBC Distribution Width 11.7 % (11.5-14.5); Red Blood Cell (RBC) Count 2.93 mill/uL (4.20-5.40)
[2018-03-21 04:30] LABS: Anion Gap 10 mmol/L (10-20); BUN (Urea Nitrogen) 11 mg/dL (9.8-20.1); Calc. Creatinine Clearance 92 mL/min (70-130); Calcium 9.7 mg/dL (7.8-10.44); Carbon Dioxide 34 mmol/L (22-29); Chloride 102 mmol/L (98-107); Estimated GFR-MDRD Greater than 90; Glucose 126 mg/dL (70-105); Potassium 3.5 mmol/L (3.5-5.1); Sodium 142 mmol/L (136-145)
[2018-03-21] MEDS: Cefepime 1 GM, Admixture Fee 1 EACH in Sodium Chloride 0.9% 10 ML SLOW IVP SCH ×2 (05:04→17:19)
--- NOTE | 2018-03-21 07:38 | PDOC.PULCC ---
CCU Progress Note: Subj/Obj - Subjective Date: 03/21/18 Time: 07:33 Narrative: Intubated on vent - Objective Allergies/Adverse Reactions: Allergies Allergy/AdvReac Type Severity Reaction Status Date / Time Penicillins Allergy "my mom Verified 05/30/16 09:35 said my tongue swelled up & trouble breathing" MAR Reviewed: Yes Vital Signs and I&O: Vital Signs Temp 98.8 F 03/21/18 04:00 Pulse 85 03/21/18 02:26 Resp 16 03/21/18 06:00 BP 109/68 03/20/18 14:20 Pulse Ox 100 03/21/18 02:26 Intake & Output 03/20/18 03/21/18 03/21/18 18:59 06:59 18:59 Intake Total 751.3 972 Output Total 507 645 Balance 244.3 327 Weight 93 lb 1.6 oz 95 lb 0.308 oz Intake: Intake, IV Amount 751.3 972 Cefepime 1 gm Admixture 10 Fee 1 each In Sodium Chloride 0.9% 10 ml @ 120 mls/hr SLOW IVP Q12H [facility]ON[facility] Rx#:[id number] Propofol 1000 mg (See 65.3 83 Protocol) IV INF PRN Rx#: [id number] Sodium Chloride 0.45% 1, 686 879 000 ml @ 75 mls/hr IV . [id number] ALONSO Rx#:[id number] Output: Output, Rehman [phone] Other: Voiding Method Indwelling Catheter Indwelling Catheter # Bowel Movements 0 Vent Setting: SIMV 16 Spontaneous Breathing Test: done (failed. Very low Spont Vt) CCU Progress Note: Exam - Physical Exam Constitutional: NAD HEENT: PERRLA Neck: no nodes Cardiovascular: RRR Respiratory: prolonged expiratory phase Focused Respiratory Location: decreased breath sounds: Right, Left Gastrointestinal: soft, non-tender Musculoskeletal: no edema Neurological: non-focal Psychiatric: normal affect, A&O x 3 Skin: no rash CCU Progress Note: Data - Labs Result Diagrams: 03/21/18 03:29 03/21/18 03:29 - Radiology Interpretation Chest x-ray Status: image reviewed by me (RUL mass.) CCU Progress Note: A/P - Problems (1) Acute and chronic respiratory failure with hypercapnia Current Visit: Yes Status: Acute Code(s): J96.22 - ACUTE AND CHRONIC RESPIRATORY FAILURE WITH HYPERCAPNIA (2) COPD exacerbation Current Visit: Yes Status: Acute Code(s): J44.1 - CHRONIC OBSTRUCTIVE PULMONARY DISEASE W (ACUTE) EXACERBATION (3) Lung cancer Current Visit: Yes Status: Chronic Code(s): C34.90 - MALIGNANT NEOPLASM OF UNSP PART OF UNSP BRONCHUS OR LUNG Qualifiers: Laterality: right Lung location: unspecified part of lung Qualified Code( s): C34.91 - Malignant neoplasm of unspecified part of right bronchus or lung - Time Spent with Patient Time (minutes): 35 (cc time) - Plan Plan: I tried her on CPAP and she has absolutely no reserve. In my opinion to weak to extubate. Terrible situation. Continue steroids, Nebs, abx. Prognosis dismal
[2018-03-21 07:46] LABS: Actual Bicarbonate (HCO3a) 34.7 mEq/L (22-26); Base Excess (BEa) 9.5 mEq/L (0 (+/-) 2.5); CO2 Tension 51.6 mmHg (35.0-45.0); Hematocrit-ABG 27.2 % (36.0-47.0); Hemoglobin (Hb) 8.5 g/dL (12.0-16.0); pH, Arterial 7.45 (7.35-7.45)
[2018-03-21 07:47] LABS: Calcium, Ionized 1.3 mmol/L (1.12-1.30); Puncture Site RBA
[2018-03-21] MEDS: Propofol 1,000 MG/100 ML VIAL IV PRN ×2 (08:20→18:22)
[2018-03-21] MEDS ORDERED: Sodium Bicarbonate Tab 325 MG TAB PER TUBE PRN (08:47)
[2018-03-21] MEDS ORDERED: Pancrelipase DR 12000 1 CAP FS PRN (08:47)
[2018-03-21] MEDS: Budesonide 0.5 MG/2 ML NEB INH SCH ×2 (08:49→19:40)
--- NOTE | 2018-03-21 08:54 | RAD ---
SEMIUPRIGHT PORTABLE FRONTAL CHEST RADIOGRAPH: DATE: 03/21/18. COMPARISON: 03/20/18. HISTORY: Ventilated patient. FINDINGS: Endotracheal tube projects over the tracheal air column in stable proper position. Nasogastric tube extends into left upper quadrant. The lungs are hyperinflated and of increased lucency with increased linear interstitial density noted . The findings suggest COPD. There is a mass density in the mid right lung zone measuring 5.1 x 5.1 cm, as seen on multiple prior examinations, concerning for bronchogenic carcinoma. IMPRESSION: No significant interval change. POS: [facility]
[2018-03-21] MEDS: Arformoterol 15 MCG/2 ML NEB NEB SCH ×2 (09:05→19:40)
[2018-03-21] MEDS: Sodium Chloride 0.45% 1,000 ML IV SCH (12:44)
--- NOTE | 2018-03-21 14:36 | PDOC.PN ---
- Subjective Encounter Start Date: 03/21/18 Encounter Start Time: 13:00 Subjective: is on vent and sedated, opens eyes to verbal stimuli - Objective MAR Reviewed: Yes Vital Signs & Weight: Vital Signs (12 hours) Temp Pulse Resp BP Pulse Ox 03/21/18 12:05 83 112/65 03/21/18 12:03 87 16 100 03/21/18 12:00 98.6 F 16 03/21/18 10:00 16 03/21/18 09:05 91 16 100 03/21/18 08:52 87 117/74 100 03/21/18 08:49 83 16 100 03/21/18 08:47 83 16 100 03/21/18 08:00 98.7 F 16 03/21/18 06:00 16 03/21/18 04:00 98.8 F 16 Weight Admit Weight 93 lb 14.671 oz Weight 95 lb 0.308 oz Most Recent Monitor Data Heart Rate from ECG 105 NIBP 112/67 NIBP BP-Mean 74 Respiration from ECG 33 SpO2 100 I&O: 03/20/18 03/21/18 03/22/18 06:59 06:59 06:59 Intake Total 10 1723.3 Output Total 550 1152 800 Balance -540 571.3 -800 Result Diagrams: 03/21/18 03:29 03/21/18 03:29 Phys Exam - Physical Examination HEENT: PERRLA, sclera anicteric Neck: no JVD, supple Respiratory: no wheezing, no rales rhonchi+ Cardiovascular: RRR, no significant murmur Gastrointestinal: soft, non-tender, positive bowel sounds Musculoskeletal: no edema, pulses present Neurological: non-focal, moves all 4 limbs Dx/Plan (1) Acute and chronic respiratory failure with hypercapnia Code(s): J96.22 - ACUTE AND CHRONIC RESPIRATORY FAILURE WITH HYPERCAPNIA Status: Acute (2) COPD exacerbation Code(s): J44.1 - CHRONIC OBSTRUCTIVE PULMONARY DISEASE W (ACUTE) EXACERBATION Status: Acute Comment: Intubated and on mechanical ventilation. Continue cefepime, oxygen, steroids and bronchodilators. (3) Lung cancer Code(s): C34.90 - MALIGNANT NEOPLASM OF UNSP PART OF UNSP BRONCHUS OR LUNG Status: Chronic Qualifiers: Laterality: right Lung location: unspecified part of lung Qualified Code( s): C34.91 - Malignant neoplasm of unspecified part of right bronchus or lung Comment: squamous cell, diagnosed 12/2015 (4) Afib Code(s): I48.91 - UNSPECIFIED ATRIAL FIBRILLATION Status: Chronic Qualifiers: Atrial fibrillation type: paroxysmal Qualified Code(s): I48.0 - Paroxysmal atrial fibrillation (5) Anemia Code(s): D64.9 - ANEMIA, UNSPECIFIED Status: Chronic Qualifiers: Anemia type: unspecified type Qualified Code(s): D64.9 - Anemia, unspecified (6) Protein-calorie malnutrition, moderate Code(s): E44.0 - MODERATE PROTEIN-CALORIE MALNUTRITION Status: Chronic (7) Severe mitral regurgitation Code(s): I34.0 - NONRHEUMATIC MITRAL (VALVE) INSUFFICIENCY Status: Chronic - Plan is on cefepime, nebs, solumedrol 40mg q6h -: gentle iv hydration -: failed cpap weaning trial this am -: prognosis guarded * . Review of Systems - Medications/Allergies Allergies/Adverse Reactions: Allergies Allergy/AdvReac Type Severity Reaction Status Date / Time Penicillins Allergy "my mom Verified 05/30/16 09:35 said my tongue swelled up & trouble breathing" Medications: Current Medications Acetaminophen (Tylenol) 650 mg [place] Q4H PRN PRN Reason: Headache/Fever or Pain Albuterol/Ipratropium (Duoneb) 3 ml NEB [id number] ALONSO Last Admin: 03/21/18 12:03 Dose: 3 ml Lipase/Protease/Amylase (Penny Winter [id number]) 1 cap FS .PER PROTOCOL PRN PRN Reason: TUBE OCCLUSION PROTOCOL Arformoterol Tartrate (Brovana) 15 mcg NEB BID-RT ALONSO Last Admin: 03/21/18 09:05 Dose: 15 mcg Budesonide (Pulmicort Neb Solution) 0.5 mg INH BID-RT ALONSO Last Admin: 03/21/18 08:49 Dose: 0.5 mg Fentanyl Citrate 2,000 mcg/ (Sodium Chloride) 100 mls @ 0 mls/hr IV INF ALONSO; Per Protocol PRN Reason: Protocol Stop: 04/18/18 15:56 Cefepime HCl 1 gm/Miscellaneous Medication 1 each/ Sodium Chloride 10 mls @ 120 mls/hr SLOW IVP Q12H ALONSO Last Admin: 03/21/18 05:04 Dose: 10 mls Fentanyl (Fentanyl Cadd) 250 mls @ 0 mls/hr IVPB INF ALONSO; Titrate PRN Reason: Protocol Stop: 04/18/18 19:48 Fentanyl Citrate (Fentanyl Bolus) 250 mls @ 0 mls/hr IVPB PRN PRN; As Directed PRN Reason: Breakthrough pain/agitation Stop: 04/18/18 19:48 Sodium Chloride (1/2 Normal Saline) 1,000 mls @ 75 mls/hr IV .[id number] ALONSO Last Admin: 03/21/18 12:44 Dose: 1,000 mls Lorazepam (Ativan) 2 mg SLOW IVP Q1H PRN PRN Reason: Breakthrough agitation Stop: 04/18/18 19:48 Last Admin: 03/21/18 12:45 Dose: 2 mg Methylprednisolone Sodium Succinate (Solu-Medrol) 40 mg IVP Q6HR [facility] Last Admin: 03/21/18 12:44 Dose: 40 mg Mineral Oil/White Petrolatum (Lacri-Lube Ointment) 0 gm EA EYE PRN PRN PRN Reason: Dry Eyes Montelukast Sodium (Singulair) 10 mg PER TUBE QPM [facility] Last Admin: 03/20/18 20:01 Dose: 10 mg Morphine Sulfate (Morphine) 2 mg SLOW IVP Q1H PRN PRN Reason: breakthrough pain/agitation Stop: 04/18/18 19:48 Ondansetron HCl (Zofran) 4 mg IVP Q6H PRN PRN Reason: Nausea/Vomiting Pantoprazole Sodium (Protonix) 40 mg PER TUBE 2100 ALONSO Propofol (Diprivan) 1,000 mg IV INF PRN; Protocol PRN Reason: TO ACHIEVE GOAL RASS Stop: 04/18/18 19:48 Last Admin: 03/21/18 08:20 Dose: 1,000 mg Propofol (Diprivan Bolus) 20 mg IV Q5MIN PRN PRN Reason: BREAKTHROUGH AGITATION Stop: 04/18/18 19:48 Sodium Bicarbonate (Bicarbonate, Sodium) 650 mg PER TUBE .PER PROTOCOL PRN PRN Reason: ENTERAL TUBE OCCLUSION
[2018-03-21] MEDS: Pantoprazole 40 MG GRANULES PACKET PER TUBE SCH (20:39)
[2018-03-21] MEDS: Montelukast Sodium 10 mg Tablet PER TUBE SCH (20:39)
[2018-03-22] MEDS: Sodium Chloride 0.45% 1,000 ML IV SCH ×2 (00:36→11:44)
[2018-03-22] MEDS ORDERED: Acetaminophen 650 MG/20.3 ML UDCUP PER TUBE SCH (01:00)
[2018-03-22] MEDS: Propofol 1,000 MG/100 ML VIAL IV PRN (04:30)
[2018-03-22 05:06] LABS: #Lymphocytes 0.2 thou/uL (1.20-3.40); #Monocytes 0.4 thou/uL (0.11-0.59); #Neutrophils 6.9 thou/uL (1.40-6.50); %Basophils 0.4 % (0.0-1.0); %Eosinophils 0.2 % (0.0-10.0); %Lymphocytes 2.9 % (21.0-51.0); %Monocytes 5.2 % (0.0-10.0); %Neutrophils 91.4 % (42.0-75.0); Mean Corpuscular HGB CONC 31.2 g/dL (32.0-36.0); Mean Corpuscular Hemoglobin 29.5 pg (27.0-31.0); Mean Corpuscular Volume 94.4 fl (81.0-99.0); Mean Platelet Volume 6.6 fL (7.4-10.4); Platelet Count 293 thou/uL (130-400); Red Blood Cell (RBC) Count 3.04 mill/uL (4.20-5.40); White Blood Cell (WBC) Count 7.6 thou/uL (4.8-10.8)
[2018-03-22 05:15] LABS: Anion Gap 12 mmol/L (10-20); BUN (Urea Nitrogen) 15 mg/dL (9.8-20.1); Calc. Creatinine Clearance 92 mL/min (70-130); Calcium 9.3 mg/dL (7.8-10.44); Carbon Dioxide 34 mmol/L (22-29); Chloride 101 mmol/L (98-107); Estimated GFR-MDRD Greater than 90; Glucose 124 mg/dL (70-105); Potassium 3.5 mmol/L (3.5-5.1); Sodium 143 mmol/L (136-145)
[2018-03-22] MEDS: Cefepime 1 GM, Admixture Fee 1 EACH in Sodium Chloride 0.9% 10 ML SLOW IVP SCH ×2 (06:05→17:48)
[2018-03-22 07:27] LABS: Actual Bicarbonate (HCO3a) 35.6 mEq/L (22-26); Base Excess (BEa) 10.4 mEq/L (0 (+/-) 2.5); CO2 Tension 52.4 mmHg (35.0-45.0); Hematocrit-ABG 27.6 % (36.0-47.0); Hemoglobin (Hb) 8.8 g/dL (12.0-16.0); O2 Tension (PaO2) 95.2 mmHg (80.0-100.0); pH, Arterial 7.45 (7.35-7.45)
[2018-03-22 07:28] LABS: Calcium, Ionized 1.3 mmol/L (1.12-1.30); Puncture Site RBA
--- NOTE | 2018-03-22 07:58 | RAD ---
PORTABLE SEMIUPRIGHT FRONTAL CHEST RADIOGRAPH: Date: 03/22/18 COMPARISON: 03/21/18. HISTORY: Ventilated CCU patient. FINDINGS: Stable endotracheal tube and nasogastric tube. Lungs are hyperinflated and there is diffuse increased interstitial density consistent with air trapping/COPD. Stable mass lesion in mid right lung zone brito spicious for bronchogenic carcinoma. No lobar consolidation, alveolar edema, or pneumothorax seen. IMPRESSION: Stable appearance of the chest. POS: REJIH
[2018-03-22] MEDS: Budesonide 0.5 MG/2 ML NEB INH SCH ×2 (09:06→18:26)
[2018-03-22] MEDS: Arformoterol 15 MCG/2 ML NEB NEB SCH ×2 (09:29→18:47)
--- NOTE | 2018-03-22 09:40 | PRG ---
DATE OF SERVICE: 03/22/2018 Thirty-five minutes critical care time. SUBJECTIVE: Amarilis is doing much better today. She is awake, alert, following commands. OBJECTIVE: VITAL SIGNS: Temperature is 98.3, pulse 86, blood pressure 135/88, O2 sat 98%. Total intake for 24 hours 2178, output 2145. HEENT: Unremarkable. NECK: No JVD. LUNGS: Clear but distant breath sounds. CARDIAC: S1 and S2 regular. ABDOMEN: Soft, nontender. EXTREMITIES: No edema. LABORATORY DATA: White blood cell count 7.6, hematocrit 28.7, platelet count 293. A PH 7.45, pCO2 5 2, pO2 of 95 on SIMV rate 16, tidal volume 350, PEEP 5, pressure support 10, FiO2 30%. Sodium 143, p otassium 3.5, chloride 101, CO2 34, BUN 15, creatinine 0.5, glucose 124. Chest x-ray shows no change . ASSESSMENT: 1. Acute on chronic respiratory failure related to chronic obstructive pulmonary disease. 2. Lung cancer. 3. Severe deconditioning. PLAN: Starting weaning trial this morning so far that looks good. Hopefully, can extubate her if sh e passes. I spent a great deal of time speaking with the patient's daughter yesterday. Our plan was to continu e aggressive support through the weekend. I did tell her that there was a possibility to mom could i mprove would be extubated today. Continue steroids, nebulization treatments and antibiotics.
--- NOTE | 2018-03-22 10:16 | PDOC.PN ---
- Subjective Encounter Start Date: 03/22/18 Encounter Start Time: 10:18 Subjective: No complaints. Remains extubated but awake. -: No acute events overnight. - Objective MAR Reviewed: Yes Vital Signs & Weight: Vital Signs (12 hours) Temp Pulse Resp BP Pulse Ox 03/22/18 10:00 112 H 19 97 03/22/18 09:29 103 H 22 H 99 03/22/18 09:07 85 135/88 100 03/22/18 09:06 88 24 H 100 03/22/18 08:00 98.3 F 88 16 100 03/22/18 06:00 16 03/22/18 04:03 90 03/22/18 04:00 98.9 F 16 03/22/18 02:00 16 03/22/18 01:59 104 H 16 100 03/22/18 00:37 98 03/22/18 00:00 98.6 F 16 03/21/18 23:06 103 H 03/21/18 22:49 90 16 100 Weight Admit Weight 93 lb 14.671 oz Weight 91 lb 14.924 oz Most Recent Monitor Data Heart Rate from ECG 109 NIBP 147/98 NIBP BP-Mean 127 Respiration from ECG 29 SpO2 98 I&O: 03/21/18 03/22/18 03/23/18 06:59 06:59 06:59 Intake Total 1723.3 2178 Output Total 1152 2145 425 Balance 571.3 33 -425 Result Diagrams: 03/22/18 04:41 03/22/18 04:41 Phys Exam - Physical Examination Constitutional: NAD HEENT: PERRLA, moist MMs, sclera anicteric Neck: no JVD, supple, full ROM Respiratory: no rales, no rhonchi, clear to auscultation bilateral reduced breath sounds. Cardiovascular: RRR, no rub + systolic murmur. Gastrointestinal: soft, non-tender, no distention, positive bowel sounds Musculoskeletal: no edema, pulses present Neurological: non-focal, moves all 4 limbs Psychiatric: normal affect, A&O x 3 (Intubated but awakw and able to answer questions. ) Dx/Plan (1) Acute and chronic respiratory failure with hypercapnia Code(s): J96.22 - ACUTE AND CHRONIC RESPIRATORY FAILURE WITH HYPERCAPNIA Status: Acute Comment: On minimal vent settings. Awake. Likely extubation today. (2) COPD exacerbation Code(s): J44.1 - CHRONIC OBSTRUCTIVE PULMONARY DISEASE W (ACUTE) EXACERBATION Status: Acute Comment: Intubated and on mechanical ventilation. Continue cefepime, oxygen, steroids and bronchodilators. (3) Lung cancer Code(s): C34.90 - MALIGNANT NEOPLASM OF UNSP PART OF UNSP BRONCHUS OR LUNG Status: Chronic Qualifiers: Laterality: right Lung location: unspecified part of lung Qualified Code( s): C34.91 - Malignant neoplasm of unspecified part of right bronchus or lung Comment: squamous cell, diagnosed 12/2015 (4) Protein-calorie malnutrition, severe Code(s): E43 - UNSPECIFIED SEVERE PROTEIN-CALORIE MALNUTRITION Status: Chronic Comment: Supplements when able to tolerate orally. (5) Afib Code(s): I48.91 - UNSPECIFIED ATRIAL FIBRILLATION Status: Chronic Qualifiers: Atrial fibrillation type: paroxysmal Qualified Code(s): I48.0 - Paroxysmal atrial fibrillation Comment: Rate Controlled. (6) Protein-calorie malnutrition, moderate Code(s): E44.0 - MODERATE PROTEIN-CALORIE MALNUTRITION Status: Chronic (7) Severe mitral regurgitation Code(s): I34.0 - NONRHEUMATIC MITRAL (VALVE) INSUFFICIENCY Status: Chronic (8) Physical deconditioning Code(s): R53.81 - OTHER MALAISE Status: Acute Comment: Consult PT/OT. - Plan cont current plan of care, continue antibiotics, PT/OT, respiratory therapy * . Review of Systems - Medications/Allergies Allergies/Adverse Reactions: Allergies Allergy/AdvReac Type Severity Reaction Status Date / Time Penicillins Allergy "my mom Verified 05/30/16 09:35 said my tongue swelled up & trouble breathing" Medications: Current Medications Acetaminophen (Tylenol) 650 mg LA Q4H PRN PRN Reason: Headache/Fever or Pain Albuterol/Ipratropium (Duoneb) 3 ml NEB [id number] ALONSO Last Admin: 03/22/18 09:06 Dose: 3 ml Lipase/Protease/Amylase (Penny Winter [id number]) 1 cap FS .PER PROTOCOL PRN PRN Reason: TUBE OCCLUSION PROTOCOL Arformoterol Tartrate (Brovana) 15 mcg NEB BID-RT ALONSO Last Admin: 03/22/18 09:29 Dose: 15 mcg Budesonide (Pulmicort Neb Solution) 0.5 mg INH BID-RT [facility] Last Admin: 03/22/18 09:06 Dose: 0.5 mg Fentanyl Citrate 2,000 mcg/ (Sodium Chloride) 100 mls @ 0 mls/hr IV INF ALONSO; Per Protocol PRN Reason: Protocol Stop: 04/18/18 15:56 Cefepime HCl 1 gm/Miscellaneous Medication 1 each/ Sodium Chloride 10 mls @ 120 mls/hr SLOW IVP Q12H [facility] Last Admin: 03/22/18 06:05 Dose: 10 mls Fentanyl (Fentanyl Cadd) 250 mls @ 0 mls/hr IVPB INF ALONSO; Titrate PRN Reason: Protocol Stop: 04/18/18 19:48 Fentanyl Citrate (Fentanyl Bolus) 250 mls @ 0 mls/hr IVPB PRN PRN; As Directed PRN Reason: Breakthrough pain/agitation Stop: 04/18/18 19:48 Sodium Chloride (1/2 Normal Saline) 1,000 mls @ 75 mls/hr IV .[id number] [facility] Last Admin: 03/22/18 00:36 Dose: 1,000 mls Lorazepam (Ativan) 2 mg SLOW IVP Q1H PRN PRN Reason: Breakthrough agitation Stop: 04/18/18 19:48 Last Admin: 03/21/18 12:45 Dose: 2 mg Methylprednisolone Sodium Succinate (Solu-Medrol) 40 mg IVP Q6HR [facility] Last Admin: 03/22/18 06:05 Dose: 40 mg Mineral Oil/White Petrolatum (Lacri-Lube Ointment) 0 gm EA EYE PRN PRN PRN Reason: Dry Eyes Montelukast Sodium (Singulair) 10 mg PER TUBE QPM [facility] Last Admin: 03/21/18 20:39 Dose: 10 mg Morphine Sulfate (Morphine) 2 mg SLOW IVP Q1H PRN PRN Reason: breakthrough pain/agitation Stop: 04/18/18 19:48 Ondansetron HCl (Zofran) 4 mg IVP Q6H PRN PRN Reason: Nausea/Vomiting Pantoprazole Sodium (Protonix) 40 mg PER TUBE 2100 [facility] Last Admin: 03/21/18 20:39 Dose: 40 mg Propofol (Diprivan) 1,000 mg IV INF PRN; Protocol PRN Reason: TO ACHIEVE GOAL RASS Stop: 04/18/18 19:48 Last Admin: 03/22/18 04:30 Dose: 1,000 mg Propofol (Diprivan Bolus) 20 mg IV Q5MIN PRN PRN Reason: BREAKTHROUGH AGITATION Stop: 04/18/18 19:48 Sodium Bicarbonate (Bicarbonate, Sodium) 650 mg PER TUBE .PER PROTOCOL PRN PRN Reason: ENTERAL TUBE OCCLUSION
[2018-03-22] MEDS: ALPRAZolam 0.5 MG TAB PO SCH ×2 (14:12→23:59)
[2018-03-22] MEDS: Heparin 5,000 UNITS/ML VIAL SC SCH ×2 (14:13→21:04)
[2018-03-22] MEDS ORDERED: Acetaminophen 325 MG TAB PO PRN (14:30)
[2018-03-22] MEDS: Lorazepam 2 MG/ML VIAL SLOW IVP PRN (19:17)
[2018-03-22] MEDS: Montelukast Sodium 10 mg Tablet PER TUBE SCH (23:59)
[2018-03-23] MEDS: Lorazepam 2 MG/ML VIAL SLOW IVP PRN (01:49)
[2018-03-23] MEDS: Sodium Chloride 0.45% 1,000 ML IV SCH ×2 (01:58→15:16)
[2018-03-23] MEDS: Cefepime 1 GM, Admixture Fee 1 EACH in Sodium Chloride 0.9% 10 ML SLOW IVP SCH ×2 (05:08→18:08)
[2018-03-23 05:18] LABS: #Eosinphils 0.1 thou/uL (0.0-0.7); #Lymphocytes 0.4 thou/uL (1.20-3.40); #Monocytes 0.7 thou/uL (0.11-0.59); #Neutrophils 12.1 thou/uL (1.40-6.50); %Eosinophils 0.7 % (0.0-10.0); %Lymphocytes 3.1 % (21.0-51.0); %Monocytes 5.4 % (0.0-10.0); %Neutrophils 90.9 % (42.0-75.0); Hemoglobin 10.7 g/dL (12.0-16.0); Mean Corpuscular HGB CONC 30.8 g/dL (32.0-36.0); Mean Corpuscular Hemoglobin 30.4 pg (27.0-31.0); Mean Corpuscular Volume 98.7 fl (81.0-99.0); Mean Platelet Volume 6.6 fL (7.4-10.4); Platelet Count 363 thou/uL (130-400); RBC Distribution Width 12.3 % (11.5-14.5); Red Blood Cell (RBC) Count 3.52 mill/uL (4.20-5.40); White Blood Cell (WBC) Count 13.3 thou/uL (4.8-10.8)
[2018-03-23 05:24] LABS: BUN (Urea Nitrogen) 18 mg/dL (9.8-20.1); Calc. Creatinine Clearance 82 mL/min (70-130); Estimated GFR-MDRD Greater than 90; Glucose 113 mg/dL (70-105)
[2018-03-23 05:34] LABS: Anion Gap 14 mmol/L (10-20); Carbon Dioxide 37 mmol/L (22-29); Chloride 99 mmol/L (98-107); Potassium 4.4 mmol/L (3.5-5.1); Sodium 146 mmol/L (136-145)
[2018-03-23] MEDS ORDERED: Morphine 4 MG/ML VIAL SLOW IVP PRN (07:02)
--- NOTE | 2018-03-23 07:55 | PRG ---
DATE OF SERVICE: 03/23/2018 SUBJECTIVE: The patient remains on the BiPAP. She did okay after extubation. OBJECTIVE: VITAL SIGNS: Temperature 97.8, pulse 90, blood pressure 117/74. A 24-hour intake 2231, output 2205. HEENT: Unremarkable. NECK: No JVD. LUNGS: Bilateral expiratory wheezing. CARDIAC: S1 and S2 regular. ABDOMEN: Soft, nontender. EXTREMITIES: Severe muscle wasting. LABORATORY DATA: White blood cell count 13, hematocrit 34.7, platelet count 363. Sodium 146, potass ium 4.4, chloride 99, CO2 37, BUN 18, creatinine 0.5, glucose 113. ASSESSMENT: 1. Lung cancer. 2. Severe chronic obstructive pulmonary disease. 3. Acute hypoxic and hypercapnic respiratory failure requiring mechanical ventilation. PLAN: This is a difficult situation. I have pulled up a chair and spoke to the patient for about 10 minutes this morning in regards to code status. Dr. Leonard felt like she needed to move toward [facility] and the patient had actually enrolled in Hospice last week. I told her that doing CPR in the event of a cardiac or pulmonary arrest would not be advisable as I could not return her to [facility]. She reluctantly agreed to DNR status with the stipulation that I give her morphi ne and Ativan as needed for pain and anxiety. I will attempt to speak with the patient's daughter karyna en she comes appear later. This encompassed 30 minutes of critical care time.
[2018-03-23] MEDS: Budesonide 0.5 MG/2 ML NEB INH SCH ×2 (09:02→19:35)
[2018-03-23] MEDS: ALPRAZolam 0.5 MG TAB PO SCH ×3 (09:23→20:59)
[2018-03-23] MEDS: Heparin 5,000 UNITS/ML VIAL SC SCH ×3 (09:26→20:59)
[2018-03-23] MEDS: Arformoterol 15 MCG/2 ML NEB NEB SCH ×2 (09:26→19:33)
--- NOTE | 2018-03-23 14:08 | PDOC.PN ---
- Subjective Encounter Start Date: 03/23/18 Encounter Start Time: 14:17 Subjective: No complaints. Says she is not in pain -: Extubated yesterday to [place] but now rewuiring bipap -: Made DNR - Objective Resuscitation Status: Resuscitation Status DNR:Do Not Resuscitate MAR Reviewed: Yes Vital Signs & Weight: Vital Signs (12 hours) Temp Pulse Resp Pulse Ox 03/23/18 12:00 97.4 F L 03/23/18 11:23 92 100 03/23/18 11:22 86 22 H 100 03/23/18 09:26 93 23 H 100 03/23/18 09:02 94 22 H 95 03/23/18 09:01 94 22 H 95 03/23/18 08:57 94 95 03/23/18 08:00 97.1 F L 88 23 H 100 03/23/18 04:00 97.8 F 03/23/18 02:53 99 22 H 95 Weight Admit Weight 93 lb 14.671 oz Weight 90 lb 13.287 oz Most Recent Monitor Data Heart Rate from ECG 81 NIBP 102/61 NIBP BP-Mean 79 Respiration from ECG 21 SpO2 100 I&O: 03/22/18 03/23/18 03/24/18 06:59 06:59 06:59 Intake Total 2178 2231.8 Output Total 2145 2205 250 Balance 33 26.8 -250 Result Diagrams: 03/23/18 03:45 03/23/18 03:45 Phys Exam - Physical Examination Constitutional: NAD cachectic HEENT: PERRLA, moist MMs, sclera anicteric Neck: no JVD, supple, full ROM Respiratory: no wheezing, no rales, no rhonchi reduced breath sounds b/l Cardiovascular: RRR, no significant murmur, no rub Gastrointestinal: soft, non-tender, no distention, positive bowel sounds Musculoskeletal: no edema, pulses present Neurological: non-focal, moves all 4 limbs Oriented x 3 but lethargic Skin: no rash, normal turgor Dx/Plan (1) Acute and chronic respiratory failure with hypercapnia Code(s): J96.22 - ACUTE AND CHRONIC RESPIRATORY FAILURE WITH HYPERCAPNIA Status: Acute Comment: Extubated but still requiring Bilevel. (2) COPD exacerbation Code(s): J44.1 - CHRONIC OBSTRUCTIVE PULMONARY DISEASE W (ACUTE) EXACERBATION Status: Acute Comment: Continue cefepime, oxygen, steroids and bronchodilators. (3) Lung cancer Code(s): C34.90 - MALIGNANT NEOPLASM OF UNSP PART OF UNSP BRONCHUS OR LUNG Status: Chronic Qualifiers: Laterality: right Lung location: unspecified part of lung Qualified Code( s): C34.91 - Malignant neoplasm of unspecified part of right bronchus or lung Comment: squamous cell, diagnosed 12/2015 (4) Afib Code(s): I48.91 - UNSPECIFIED ATRIAL FIBRILLATION Status: Chronic Qualifiers: Atrial fibrillation type: paroxysmal Qualified Code(s): I48.0 - Paroxysmal atrial fibrillation Comment: Rate Controlled. (5) Protein-calorie malnutrition, moderate Code(s): E44.0 - MODERATE PROTEIN-CALORIE MALNUTRITION Status: Chronic Comment: Supplements when able to tolerate orally. (6) Severe mitral regurgitation Code(s): I34.0 - NONRHEUMATIC MITRAL (VALVE) INSUFFICIENCY Status: Chronic (7) Physical deconditioning Code(s): R53.81 - OTHER MALAISE Status: Acute Comment: PT/OT when off Bilevel. - Plan cont current plan of care, plan discussed w/ family, continue antibiotics, PT/OT , respiratory therapy, DVT proph w/heparin Continue Bilevel for now -: Palliative care to visit patient today- considering hospice care -: Dispo depending on discussioon with palliative care. * . Review of Systems - Medications/Allergies Allergies/Adverse Reactions: Allergies Allergy/AdvReac Type Severity Reaction Status Date / Time Penicillins Allergy "my mom Verified 05/30/16 09:35 said my tongue swelled up & trouble breathing" Medications: Current Medications Acetaminophen (Tylenol) 650 mg NV Q4H PRN PRN Reason: Headache/Fever or Pain Acetaminophen (Tylenol) 650 mg PO Q4H PRN PRN Reason: Headache/Fever or Pain Last Admin: 03/22/18 14:46 Dose: 650 mg Albuterol/Ipratropium (Duoneb) 3 ml NEB [id number] ALONSO Last Admin: 03/23/18 11:22 Dose: 3 ml Alprazolam (Xanax) 0.5 mg PO TID ALONSO Last Admin: 03/23/18 09:23 Dose: 0.5 mg Lipase/Protease/Am[place] ([place] [id number]) 1 cap FS .PER PROTOCOL PRN PRN Reason: TUBE OCCLUSION PROTOCOL Arformoterol Tartrate (Brovana) 15 mcg NEB BID-RT ALONSO Last Admin: 03/23/18 09:26 Dose: 15 mcg Budesonide (Pulmicort Neb Solution) 0.5 mg INH BID-RT ALONSO Last Admin: 03/23/18 09:02 Dose: 0.5 mg Heparin Sodium (Porcine) (Heparin) 5,000 units SC TID ALONSO Last Admin: 03/23/18 09:26 Dose: 5,000 units Fentanyl Citrate 2,000 mcg/ (Sodium Chloride) 100 mls @ 0 mls/hr IV INF ALONSO; Per Protocol PRN Reason: Protocol Stop: 04/18/18 15:56 Cefepime HCl 1 gm/Miscellaneous Medication 1 each/ Sodium Chloride 10 mls @ 120 mls/hr SLOW IVP Q12H [facility] Last Admin: 03/23/18 05:08 Dose: 10 mls Fentanyl (Fentanyl Cadd) 250 mls @ 0 mls/hr IVPB INF ALONSO; Titrate PRN Reason: Protocol Stop: 04/18/18 19:48 Fentanyl Citrate (Fentanyl Bolus) 250 mls @ 0 mls/hr IVPB PRN PRN; As Directed PRN Reason: Breakthrough pain/agitation Stop: 04/18/18 19:48 Sodium Chloride (1/2 Normal Saline) 1,000 mls @ 75 mls/hr IV .[id number] [facility] Last Admin: 03/23/18 01:58 Dose: 1,000 mls Lorazepam (Ativan) 2 mg SLOW IVP Q1H PRN PRN Reason: Breakthrough agitation Stop: 04/18/18 19:48 Last Admin: 03/22/18 19:17 Dose: 2 mg Lorazepam (Ativan) 2 mg SLOW IVP Q2H PRN PRN Reason: ANXIETY Last Admin: 03/23/18 01:49 Dose: 2 mg Methylprednisolone Sodium Succinate (Solu-Medrol) 40 mg IVP Q6HR [facility] Last Admin: 03/23/18 12:36 Dose: 40 mg Mineral Oil/White Petrolatum (Lacri-Lube Ointment) 0 gm EA EYE PRN PRN PRN Reason: Dry Eyes Montelukast Sodium (Singulair) 10 mg PER TUBE QPM [facility] Last Admin: 03/22/18 23:59 Dose: Not Given Morphine Sulfate (Morphine) 2 mg SLOW IVP Q1H PRN PRN Reason: breakthrough pain/agitation Stop: 04/18/18 19:48 Morphine Sulfate (Morphine) 4 mg SLOW IVP Q1H PRN PRN Reason: Dyspnea Ondansetron HCl (Zofran) 4 mg IVP Q6H PRN PRN Reason: Nausea/Vomiting Pantoprazole Sodium (Protonix) 40 mg PER TUBE 2100 [facility] Last Admin: 03/23/18 00:00 Dose: Not Given Propofol (Diprivan) 1,000 mg IV INF PRN; Protocol PRN Reason: TO ACHIEVE GOAL RASS Stop: 04/18/18 19:48 Last Admin: 03/22/18 04:30 Dose: 1,000 mg Propofol (Diprivan Bolus) 20 mg IV Q5MIN PRN PRN Reason: BREAKTHROUGH AGITATION Stop: 04/18/18 19:48 Sodium Bicarbonate (Bicarbonate, Sodium) 650 mg PER TUBE .PER PROTOCOL PRN PRN Reason: ENTERAL TUBE OCCLUSION Sodium Chloride (Flush - Normal Saline) 10 ml IVF Q12HR [facility] Last Admin: 03/23/18 12:36 Dose: 10 ml Sodium Chloride (Flush - Normal Saline) 10 ml IVF PRN PRN PRN Reason: Saline Flush
[2018-03-23] MEDS: Montelukast Sodium 10 mg Tablet PER TUBE SCH (20:59)
[2018-03-23] MEDS: Pantoprazole 40 MG GRANULES PACKET PER TUBE SCH ×2 (20:59)
[2018-03-24] MEDS: Lorazepam 2 MG/ML VIAL SLOW IVP PRN (00:36)
[2018-03-24 04:02] LABS: BUN (Urea Nitrogen) 18 mg/dL (9.8-20.1); Calc. Creatinine Clearance 77 mL/min (70-130); Calcium 10.1 mg/dL (7.8-10.44); Estimated GFR-MDRD Greater than 90; Glucose 136 mg/dL (70-105)
[2018-03-24] MEDS: Sodium Chloride 0.45% 1,000 ML IV SCH (04:08)
[2018-03-24 04:11] LABS: Anion Gap 12 mmol/L (10-20); Carbon Dioxide 40 mmol/L (22-29); Chloride 95 mmol/L (98-107); Potassium 4.2 mmol/L (3.5-5.1); Sodium 143 mmol/L (136-145)
[2018-03-24 04:24] LABS: Band 1 % (5-11); Hemoglobin 10.2 g/dL (12.0-16.0); Lymphocytes 6 % (21-51); MDiff Complete? YES; Mean Corpuscular HGB CONC 31.9 g/dL (32.0-36.0); Mean Corpuscular Hemoglobin 31.4 pg (27.0-31.0); Mean Corpuscular Volume 98.2 fl (81.0-99.0); Mean Platelet Volume 6.6 fL (7.4-10.4); Monocytes 9 % (0-10); Neutrophil 83 % (42-75); PLT Morphology Comment Appears Adequate; Platelet Count 287 thou/uL (130-400); RBC Distribution Width 11.8 % (11.5-14.5); RBC Morphology Normal; Reactive Lymphocytes 1 % (0-10); Red Blood Cell (RBC) Count 3.25 mill/uL (4.20-5.40); White Blood Cell (WBC) Count 10.7 thou/uL (4.8-10.8)
[2018-03-24] MEDS: Cefepime 1 GM, Admixture Fee 1 EACH in Sodium Chloride 0.9% 10 ML SLOW IVP SCH ×2 (05:01→16:17)
[2018-03-24] MEDS: Budesonide 0.5 MG/2 ML NEB INH SCH ×2 (06:50→19:16)
[2018-03-24] MEDS: Arformoterol 15 MCG/2 ML NEB NEB SCH ×2 (07:00→19:15)
--- NOTE | 2018-03-24 08:53 | PRG ---
DATE OF SERVICE: 03/24/2018 The patient is actually doing better today. She wanted to be moved out to the floor because she is e xpecting some out of town visitors. PHYSICAL EXAMINATION: VITAL SIGNS: Temperature is 98.5, pulse 85, blood pressure 114/68. 24 hour intake 1992, output 2825 . HEENT: Unremarkable. NECK: No JVD. LUNGS: Clear but distant breath sounds. CARDIAC: S1 and S2 regular. ABDOMEN: Soft. EXTREMITIES: No edema. LABORATORY DATA: White blood cell count 10.7, hematocrit 31.9, platelet count 287. Sodium 143, pota ssium 4.2, chloride 95, CO2 of 40, BUN 18, creatinine 0.5, glucose 136. ASSESSMENT: 1. Chronic obstructive pulmonary disease exacerbation. 2. Lung cancer. PLAN: She is being transferred to the floor. I am going to reduce her steroid dose. I have asked O ncology to see her to see if any other treatments are available for her cancer. 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
[2018-03-24] MEDS: ALPRAZolam 0.5 MG TAB PO SCH ×3 (09:31→20:43)
[2018-03-24] MEDS: Heparin 5,000 UNITS/ML VIAL SC SCH ×3 (09:31→20:44)
--- NOTE | 2018-03-24 10:48 | PQF ---
CLINICAL DOCUMENTATION IMPROVEMENT CLARIFICATION FORM: ICD-10 Updated PLEASE DO AN ADDENDUM TO THE PROGRESS NOTE WITH ANY DOCUMENTATION UPDATES OR ADDITIONS AND CARRY THROUGH TO DC SUMMARY. THANK YOU. Date: 03/24 ATTN: DR. Jj OVALLES Please exercise your independent, professional judgment in responding to the clarification form. Clinical indicators are provided on the bottom of this form for your review Please check appropriate box(s): [ x ] Protein Calorie Malnutrition: [ ] Mild [ x] Moderate [ ] Severe [ ] Other Malnutrition (please specify) __ [ ] Other diagnosis [ ] Unable to determine CLINICAL INDICATORS - SIGNS / SYMPTOMS / LABS BMI: 15.5 PHYSICIAN PN DATED 03/20: DX/PLAN: 3) SEVERE PROTEIN CALORIE MALNUTRITION PHYSICIAN PN DATED 03/21: DX/PLAN: 6) MODERATE PROTEIN CALORIE MALNUTRITION PHYSICIAN PN DATED 03/22: DX/PLAN: 4) SEVERE PROTEIN CALORIE MALNUTRITION PHYSICIAN PN DATED 03/23: DX/PLAN: 5) MODERATE PROTEIN CALORIE MALNUTRITION DIGITAL X RAY SERVICE ENGINEER ASSESSMENT 03/20: PATIENT OBSERVED WITH SEVERE TEMPORAL MUSCLE WASTING & MODERATE FAT & MUSCLE WASTING IN HER ARMS RISK FACTORS: END STAGE LUNG CANCER SEVERE DECONDITIONING TREATMENT: DIGITAL X RAY SERVICE ENGINEER ASSESSMENT FOR MALNUTRITION TUBE FEEDING Moderate Malnutrition (in acute illness) Energy Intake: <75% of estimated energy requirement for > 7 days Weight Loss: 1-2%/1 week; 5%/ 1 month; 7.5%/3 months Other: mild body fat loss; mild muscle mass loss; mild fluid accumulation; Severe Malnutrition (in acute illness) Energy Intake: < 50% of estimated energy requirement for > 5 days Weight Loss: >1-2%/1 week; >5%/1 month; >7.5%/3 months Other: moderate body fat loss; moderate muscle mass loss; moderate- severe fluid accumulation; measurably reduced proposal review analyst strength Moderate Malnutrition (in chronic illness) Energy Intake: <75% of estimated energy requirement for >1 month Weight Loss: 5%/1 month; 7.5%/3 months; 10%/6 months; 20%/1 year Other: mild body fat loss; mild muscle mass loss; mild fluid accumulation Severe Malnutrition (in chronic illness) Energy Intake: <75% of estimated energy requirement for >1 month Weight Loss: >5%/1 month; >7.5%/3 months; >10%/6 months; >20%/1 year Other: severe body fat loss; severe muscle mass loss; severe fluid accumulation; measurably reduced proposal review analyst strength THANK YOU! Anastasiya (This form is maintained as a part of the permanent medical record) 2014 [employer]. All Rights Reserved Anastasiya Huffman RN, BSN [email or web address] Office: [phone] [facility]ITALK[facility]ie
--- NOTE | 2018-03-24 13:09 | PDOC.PN ---
- Subjective Encounter Start Date: 03/24/18 Encounter Start Time: 12:00 Subjective: no sob, feels better - Objective Resuscitation Status: Resuscitation Status DNR:Do Not Resuscitate MAR Reviewed: Yes Vital Signs & Weight: Vital Signs (12 hours) Temp Pulse Resp BP Pulse Ox 03/24/18 12:25 98.5 F 87 18 116/71 94 L 03/24/18 10:20 93 23 H 97 03/24/18 08:00 98.2 F 93 23 H 98 03/24/18 06:48 87 22 H 96 03/24/18 03:00 98.5 F 03/24/18 02:40 99 Weight Admit Weight 93 lb 14.671 oz Weight 93 lb 4.089 oz Most Recent Monitor Data Heart Rate from ECG 99 NIBP 128/74 NIBP BP-Mean 90 Respiration from ECG 12 SpO2 99 I&O: 03/23/18 03/24/18 03/25/18 06:59 06:59 06:59 Intake Total 2231.8 1993 360 Output Total 2201 2825 930 Balance 26.8 -832 -570 Result Diagrams: 03/24/18 03:29 03/24/18 03:29 Phys Exam - Physical Examination HEENT: PERRLA, moist MMs Neck: no JVD, supple Respiratory: no wheezing, no rales Cardiovascular: RRR, no significant murmur Gastrointestinal: soft, non-tender, positive bowel sounds Musculoskeletal: no edema, pulses present Neurological: non-focal, moves all 4 limbs Psychiatric: normal affect, A&O x 3 Dx/Plan (1) Acute and chronic respiratory failure with hypercapnia Code(s): J96.22 - ACUTE AND CHRONIC RESPIRATORY FAILURE WITH HYPERCAPNIA Status: Resolved Comment: extubated 03/23/18 (2) COPD exacerbation Code(s): J44.1 - CHRONIC OBSTRUCTIVE PULMONARY DISEASE W (ACUTE) EXACERBATION Status: Acute Comment: Continue cefepime, oxygen, steroids and bronchodilators. (3) Lung cancer Code(s): C34.90 - MALIGNANT NEOPLASM OF UNSP PART OF UNSP BRONCHUS OR LUNG Status: Chronic Qualifiers: Laterality: right Lung location: unspecified part of lung Qualified Code( s): C34.91 - Malignant neoplasm of unspecified part of right bronchus or lung Comment: squamous cell, diagnosed 12/2015 (4) Afib Code(s): I48.91 - UNSPECIFIED ATRIAL FIBRILLATION Status: Chronic Qualifiers: Atrial fibrillation type: paroxysmal Qualified Code(s): I48.0 - Paroxysmal atrial fibrillation Comment: Rate Controlled. (5) Anemia Code(s): D64.9 - ANEMIA, UNSPECIFIED Status: Chronic Qualifiers: Anemia type: unspecified type Qualified Code(s): D64.9 - Anemia, unspecified (6) Protein-calorie malnutrition, moderate Code(s): E44.0 - MODERATE PROTEIN-CALORIE MALNUTRITION Status: Chronic Comment: Supplements when able to tolerate orally. (7) Severe mitral regurgitation Code(s): I34.0 - NONRHEUMATIC MITRAL (VALVE) INSUFFICIENCY Status: Chronic - Plan on solumedrol 20mg q6h, nebs and empiric cefepime -: has done post extubation -: onc eval for possible options prior to going into hospice -: may dc iv fluids -: tx to onc floor * . Review of Systems - Medications/Allergies Allergies/Adverse Reactions: Allergies Allergy/AdvReac Type Severity Reaction Status Date / Time Penicillins Allergy "my mom Verified 05/30/16 09:35 said my tongue swelled up & trouble breathing" Medications: Current Medications Acetaminophen (Tylenol) 650 mg WV Q4H PRN PRN Reason: Headache/Fever or Pain Acetaminophen (Tylenol) 650 mg PO Q4H PRN PRN Reason: Headache/Fever or Pain Last Admin: 03/22/18 14:46 Dose: 650 mg Albuterol/Ipratropium (Duoneb) 3 ml NEB [id number] ALONSO Last Admin: 03/24/18 10:20 Dose: 3 ml Alprazolam (Xanax) 0.5 mg PO TID ALONSO Last Admin: 03/24/18 09:31 Dose: 0.5 mg Lipase/Protease/Amylase ([place] [id number]) 1 cap FS .PER PROTOCOL PRN PRN Reason: TUBE OCCLUSION PROTOCOL Arformoterol Tartrate (Brovana) 15 mcg NEB BID-RT ALONSO Last Admin: 03/24/18 07:00 Dose: 15 mcg Budesonide (Pulmicort Neb Solution) 0.5 mg INH BID-RT ALONSO Last Admin: 03/24/18 06:50 Dose: 0.5 mg Heparin Sodium (Porcine) (Heparin) 5,000 units SC TID ALONSO Last Admin: 03/24/18 09:31 Dose: 5,000 units Cefepime HCl 1 gm/Miscellaneous Medication 1 each/ Sodium Chloride 10 mls @ 120 mls/hr SLOW IVP Q12H [facility] Last Admin: 03/24/18 05:01 Dose: 10 mls Methylprednisolone Sodium Succinate (Solu-Medrol) 20 mg IVP Q6HR [facility] Last Admin: 03/24/18 11:45 Dose: 20 mg Mineral Oil/White Petrolatum (Lacri-Lube Ointment) 0 gm EA EYE PRN PRN PRN Reason: Dry Eyes Montelukast Sodium (Singulair) 10 mg PER TUBE QPM [facility] Last Admin: 03/23/18 20:59 Dose: 10 mg Morphine Sulfate (Morphine) 2 mg SLOW IVP Q1H PRN PRN Reason: breakthrough pain/agitation Stop: 04/18/18 19:48 Morphine Sulfate (Morphine) 4 mg SLOW IVP Q1H PRN PRN Reason: Dyspnea Ondansetron HCl (Zofran) 4 mg IVP Q6H PRN PRN Reason: Nausea/Vomiting Pantoprazole Sodium (Protonix) 40 mg PER TUBE 2100 [facility] Last Admin: 03/23/18 20:59 Dose: Not Given Sodium Bicarbonate (Bicarbonate, Sodium) 650 mg PER TUBE .PER PROTOCOL PRN PRN Reason: ENTERAL TUBE OCCLUSION Sodium Chloride (Flush - Normal Saline) 10 ml IVF Q12HR [facility] Last Admin: 03/24/18 09:31 Dose: 10 ml Sodium Chloride (Flush - Normal Saline) 10 ml IVF PRN PRN PRN Reason: Saline Flush
--- NOTE | 2018-03-24 15:12 | CON ---
DATE OF CONSULTATION: 03/24/2018 REASON FOR CONSULTATION: Lung cancer. HISTORY OF PRESENT ILLNESS: Ms. Mcdaniel is a pleasant 57-year-old female who is well kn own to our clinic. 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 She complete d chemotherapy with Abraxane and carboplatin in 01/2017 and developed disease progression several wee ks after stopping chemo. She has been on Opdivo immunotherapy since 04/2017. Unfortunately, recent scan showed a new 5-mm nodule in the left lower lobe. There is an increase in size of the right uppe r lobe mass. She saw Dr. Leonard and he discussed options including return to chemotherapy versus h ospice. Shortly after her visit on 03/18, she had acute COPD exacerbation requiring intubation. She was in the ICU for several days. She was able to be extubated, but remains on oxygen and steroids. We were asked to see the patient regarding further disposition. PAST MEDICAL HISTORY: 1. Metastatic squamous cell carcinoma. 2. COPD. 3. Atrial fibrillation. 4. Anxiety and depression. PAST SURGICAL HISTORY: 1. Laparoscopic repair of colon perforation in 2014. 2. Lung biopsy. ALLERGIES: PENICILLIN. HOME MEDICATIONS: 1. Inhaler b.i.d. 2. Xanax 0.5 mg t.i.d. 3. Aspirin 81 mg daily. 4. Advair p.r.n. 5. Combivent p.r.n. 6. Singulair daily. 7. Xarelto 20 mg daily. FAMILY HISTORY: Mother had lung cancer. Father had stomach cancer. SOCIAL HISTORY: , has 2 children, lives with her son and daughter. She is a former smoker. No alcohol or illicit drug use. REVIEW OF SYSTEMS: Ten point review of systems is negative except for chronic shortness of breath an d cough. PHYSICAL EXAMINATION: VITAL SIGNS: Temperature is 98.5, pulse is 87, respiratory rate 18, BP is 116/71. She is 94% on 2 l iters. GENERAL: This is a thin female, in no acute distress. HEENT: Normocephalic, atraumatic. Pupils are equal and reactive to light. NECK: Supple. CARDIOVASCULAR: Regular rate and rhythm. LUNGS: Diminished throughout. ABDOMEN: Soft, nontender. Bowel sounds are positive. EXTREMITIES: No clubbing, cyanosis or edema. SKIN: No rash. HEMATOLOGIC: No petechia or purpura. NEUROLOGIC: Nonfocal. PSYCHIATRIC: The patient is alert and oriented and appropriate. PERTINENT LABORATORY AND X-RAYS: Current WBCs are 10.7, hemoglobin 10.2, hematocrit 31.9, platelet c ount is 287,000, 83% neutrophils, 6% lymphocytes. Sodium is 143, potassium 4.2, chloride 95, CO2 is 40, BUN is 18, creatinine 0.54, calcium is 10.1. ASSESSMENT: 1. Metastatic squamous cell carcinoma with recent progression on immunotherapy. 2. Chronic obstructive pulmonary disease exacerbation. DISCUSSION: The patient was seen at bedside. I discussed the option of chemotherapy again versus ho spice. She understands that chemotherapy is palliative and she feels that she does not want to deal with the side effects and would prefer quality versus quantity. Hospice has been consulted and we wi ll see the patient in the next day or so. This has been discussed with Dr. Leonard. Thank you for the consult.
[2018-03-24] MEDS: Montelukast Sodium 10 mg Tablet PER TUBE SCH (20:43)
[2018-03-25 05:25] VITALS: BMI 18.5
[2018-03-25] MEDS: Cefepime 1 GM, Admixture Fee 1 EACH in Sodium Chloride 0.9% 10 ML SLOW IVP SCH (05:25)
[2018-03-25] MEDS: Budesonide 0.5 MG/2 ML NEB INH SCH (05:53)
[2018-03-25] MEDS: Arformoterol 15 MCG/2 ML NEB NEB SCH (05:57)
[2018-03-25 08:12] VITALS: BP 125/81; TEMP 97.6
[2018-03-25] MEDS: ALPRAZolam 0.5 MG TAB PO SCH ×2 (08:55→15:43)
[2018-03-25] MEDS: Heparin 5,000 UNITS/ML VIAL SC SCH ×2 (08:57→15:43)
[2018-03-25] MEDS ORDERED: predniSONE 20 MG TAB PO SCH (09:00)
[2018-03-25] MEDS ORDERED: Cefdinir 300 MG CAP PO SCH (09:00)
--- NOTE | 2018-03-25 09:18 | PRG ---
DATE OF SERVICE: 03/25/2018 She is in good spirits. She is coughing up some phlegm. She has decided to go home on hospice. PHYSICAL EXAMINATION: VITAL SIGNS: Temperature 97.6, pulse 90, respiration 16, O2 sat 91%, blood pressure 125/81. HEENT: Unremarkable. NECK: No JVD. LUNGS: Coarse rhonchi. CARDIAC: S1 and S2 regular. ABDOMEN: Soft. EXTREMITIES: No edema. ASSESSMENT: 1. Chronic obstructive pulmonary disease exacerbation. 2. Lung cancer. RECOMMENDATION: I will go ahead and switch her over to oral antibiotics. I would complete 7 full da ys of treatment. I think she is stable for discharge to home on hospice.
--- NOTE | 2018-03-25 11:50 | PDOC.PN ---
- Subjective Encounter Start Date: 03/25/18 Encounter Start Time: 11:00 Subjective: is able to bring up sputum from last night -: feels better -: has declined palliative chemo - Objective Resuscitation Status: Resuscitation Status DNR:Do Not Resuscitate MAR Reviewed: Yes Vital Signs & Weight: Vital Signs (12 hours) Temp Pulse Resp BP BP Pulse Ox 03/25/18 09:56 89 16 96 03/25/18 08:00 97.6 F 89 16 125/81 96 03/25/18 05:57 91 16 95 03/25/18 05:53 91 16 95 03/25/18 04:00 98.1 F 80 20 115/75 96 03/25/18 02:45 94 L 03/25/18 02:25 93 20 95 03/25/18 00:00 98.4 F 93 20 132/79 93 L Weight Admit Weight 93 lb 14.671 oz Weight 101 lb 4 oz Most Recent Monitor Data Heart Rate from ECG 99 NIBP 128/74 NIBP BP-Mean 90 Respiration from ECG 12 SpO2 99 I&O: 03/24/18 03/25/18 03/26/18 06:59 06:59 06:59 Intake Total 1992 600 Output Total 3245 8362 5239 [facility] [place]832 -2853 -2500 Result Diagrams: 03/24/18 03:29 03/24/18 03:29 Phys Exam - Physical Examination HEENT: PERRLA, moist MMs Neck: no JVD, supple Respiratory: no wheezing, no rales Cardiovascular: no significant murmur, irregular Gastrointestinal: soft, non-tender, positive bowel sounds Musculoskeletal: no edema, pulses present Neurological: non-focal, moves all 4 limbs Psychiatric: normal affect, A&O x 3 Dx/Plan (1) Acute and chronic respiratory failure with hypercapnia Code(s): J96.22 - ACUTE AND CHRONIC RESPIRATORY FAILURE WITH HYPERCAPNIA Status: Resolved Comment: extubated 03/23/18 (2) COPD exacerbation Code(s): J44.1 - CHRONIC OBSTRUCTIVE PULMONARY DISEASE W (ACUTE) EXACERBATION Status: Acute (3) Lung cancer Code(s): C34.90 - MALIGNANT NEOPLASM OF UNSP PART OF UNSP BRONCHUS OR LUNG Status: Chronic Qualifiers: Laterality: right Lung location: unspecified part of lung Qualified Code( s): C34.91 - Malignant neoplasm of unspecified part of right bronchus or lung Comment: squamous cell, diagnosed 12/2015 (4) Afib Code(s): I48.91 - UNSPECIFIED ATRIAL FIBRILLATION Status: Chronic Qualifiers: Atrial fibrillation type: paroxysmal Qualified Code(s): I48.0 - Paroxysmal atrial fibrillation Comment: Rate Controlled. (5) Anemia Code(s): D64.9 - ANEMIA, UNSPECIFIED Status: Chronic Qualifiers: Anemia type: unspecified type Qualified Code(s): D64.9 - Anemia, unspecified (6) Protein-calorie malnutrition, moderate Code(s): E44.0 - MODERATE PROTEIN-CALORIE MALNUTRITION Status: Chronic Comment: Supplements when able to tolerate orally. (7) Severe mitral regurgitation Code(s): I34.0 - NONRHEUMATIC MITRAL (VALVE) INSUFFICIENCY Status: Chronic - Plan hemostable -: on omnicef, prednisone -: nebs -: has declined palliative chemo, dc plan is to home with hospice * . Review of Systems - Medications/Allergies Allergies/Adverse Reactions: Allergies Allergy/AdvReac Type Severity Reaction Status Date / Time Penicillins Allergy "my mom Verified 05/30/16 09:35 said my tongue swelled up & trouble breathing" Medications: Current Medications Acetaminophen (Tylenol) 650 mg [place] Q4H PRN PRN Reason: Headache/Fever or Pain Acetaminophen (Tylenol) 650 mg PO Q4H PRN PRN Reason: Headache/Fever or Pain Last Admin: 03/22/18 14:46 Dose: 650 mg Albuterol/Ipratropium (Duoneb) 3 ml NEB Q8OT-[id number] ALONSO Last Admin: 03/25/18 09:56 Dose: 3 ml Alprazolam (Xanax) 0.5 mg PO TID ALONSO Last Admin: 03/25/18 08:55 Dose: 0.5 mg Lipase/Protease/Amylase ([place] [id number]) 1 cap FS .PER PROTOCOL PRN PRN Reason: TUBE OCCLUSION PROTOCOL Arformoterol Tartrate (Brovana) 15 mcg NEB BID-RT ALONSO Last Admin: 03/25/18 05:57 Dose: 15 mcg Budesonide (Pulmicort Neb Solution) 0.5 mg INH BID-RT ALONSO Last Admin: 03/25/18 05:53 Dose: 0.5 mg Cefdinir (Omnicef) 600 mg PO DAILY ALONSO Last Admin: 03/25/18 08:56 Dose: 600 mg Heparin Sodium (Porcine) (Heparin) 5,000 units SC TID [facility] Last Admin: 03/25/18 08:57 Dose: 5,000 units Mineral Oil/White Petrolatum (Lacri-Lube Ointment) 0 gm EA EYE PRN PRN PRN Reason: Dry Eyes Montelukast Sodium (Singulair) 10 mg PER TUBE QPM [facility] Last Admin: 03/24/18 20:43 Dose: 10 mg Morphine Sulfate (Morphine) 2 mg SLOW IVP Q1H PRN PRN Reason: breakthrough pain/agitation Stop: 04/18/18 19:48 Morphine Sulfate (Morphine) 4 mg SLOW IVP Q1H PRN PRN Reason: Dyspnea Ondansetron HCl (Zofran) 4 mg IVP Q6H PRN PRN Reason: Nausea/Vomiting Pantoprazole Sodium (Protonix) 40 mg PO 2100 [facility] Last Admin: 03/24/18 21:58 Dose: 40 mg Prednisone (Prednisone) 20 mg PO BID [facility] Last Admin: 03/25/18 08:57 Dose: 20 mg Sodium Bicarbonate (Bicarbonate, Sodium) 650 mg PER TUBE .PER PROTOCOL PRN PRN Reason: ENTERAL TUBE OCCLUSION Sodium Chloride (Flush - Normal Saline) 10 ml IVF Q12HR [facility] Last Admin: 03/25/18 09:03 Dose: 10 ml Sodium Chloride (Flush - Normal Saline) 10 ml IVF PRN PRN PRN Reason: Saline Flush
--- NOTE | 2018-03-25 17:48 | DIS ---
DATE OF ADMISSION: 03/19/2018 DATE OF DISCHARGE: 03/25/2018 DISCHARGE DISPOSITION: To home with hospice. PRIMARY DISCHARGE DIAGNOSES: End-stage chronic obstructive pulmonary disease, history of squamous ce ll lung cancer with recurrence, chronic atrial fibrillation, moderate protein malnutrition, chronic a nemia, paroxysmal atrial fibrillation, and severe mitral regurgitation. PROCEDURES DONE DURING HOSPITALIZATION: Chest x-ray done on the day of admission showed enlargement of right upper lobe/right perihilar mass. Blood cultures x2, no growth. Had a white count of 29,000 on the day of admission with 86% neutrophils and 7% bands. Discharge white count of 10, hemoglobin and hematocrit 10 and 31, platelet count is 287. Blood gas done on the day of admission showed a pH of 7.19, pCO2 of 99, pO2 of 90. Discharge BUN and creatinine is 18 and 0.5. Albumin levels of 3.7. Troponin x2 was negative. INPATIENT CONSULTS: 1. Dr. Moraes for Pulmonology. 2. Ms. Emilie Barker, Nurse Practitioner for Oncology. DISCHARGE PLAN: The patient to follow up with hospice physician in 2-4 weeks. BRIEF COURSE DURING HOSPITALIZATION: The patient initially was brought to emergency room, intubated en route from home. She was initially on nonrebreather mask and had to be intubated by EMS. She has known history of end-stage COPD and also recurrence of squamous cell lung cancer. Prior to this, th e patient had done one cycle of chemotherapy and it stopped. She was also cachectic and has been slo wly gaining weight. She was admitted to ICU and has had consultation with Dr. Moraes. The patient has had slow weaning and finally got extubated on the . She needs to continue Omnicef for anothe r week. She will also be on steroid taper over a course of 3 weeks. Neymar Emilie Mj was consulted for Oncology in view of her recurrence of lung cancer. The patient does not want to receive even pal liative chemotherapy and would like to go into hospice at home. She is also DO NOT RESUSCITATE. In view of her above-mentioned wishes, case management and palliative care consultations were requested. Her home with hospice will be shortly set up today. Once this is set up, she will be discharged sh ortly from hospital. Please see a face to face documentation for the day of discharge on [facility].
== END 2018-03-25 16:02 | disposition hospice, home (50) | DRG 208 ==
LOC: ERS 15:12 → CCU 18:35 → T4-B 03-24 12:12
PROVIDERS: ADMIT Internal Medicine; ATTEND Internal Medicine
PROC: 5A1945Z Respiratory Ventilation, 24-96 Consecutive Hours (ICD-10-PCS; principal; 2018-03-19)
PROC: 0BH17EZ Insertion of Endotracheal Airway into Trachea, Via Natural or Artificial Opening (ICD-10-PCS; 2018-03-19)
DX: J96.22 Acute and chronic respiratory failure with hypercapnia (principal); E44.0 Moderate protein-calorie malnutrition; J44.1 Chronic obstructive pulmonary disease with (acute) exacerbation; C79.9 Secondary malignant neoplasm of unspecified site; C34.11 Malignant neoplasm of upper lobe, right bronchus or lung; I48.92 Unspecified atrial flutter; I48.0 Paroxysmal atrial fibrillation; I48.2 Chronic atrial fibrillation; D64.9 Anemia, unspecified; F17.210 Nicotine dependence, cigarettes, uncomplicated; F32.9 Major depressive disorder, single episode, unspecified; Z66 Do not resuscitate; J96.21 Acute and chronic respiratory failure with hypoxia; I34.0 Nonrheumatic mitral (valve) insufficiency; Z79.01 Long term (current) use of anticoagulants; F41.9 Anxiety disorder, unspecified; I10 Essential (primary) hypertension
CPT/HCPCS: 31500; 36415; 51702; 71045; 80048; 80053; 82330; 82803; 82805; 83605; 84484; 85025; 87040; 93005; 94002; 94003; 94640; 94660; 94760; 96361; 96365; 96366; 96374; 99292; A4216; C9113; G8978-GP-CK; G8979-GP-CJ; G8987-GO-CJ; G8988-GO-CI; J0692; J1644; J2060; J2704; J2920; J3010; J3475; J7050; J7506; J7620; J7626